=== PATIENT | male | born 1985 | race African-American/Black ===

== ENCOUNTER 2016-02-16 07:09 | Emergency (ER) | payer SELFPAY ==
[~2016-02-16] VITALS: Ht 180.3 cm; Wt 67.0 kg
[~2016-02-16 07:09] MED LIST: ARIP1TAB46 PO; CLON.2 PO; DILA4TAB10 PO; DIVA250ER PO; ENOX80P SQ; FERR324T4 PO; FOLI5CAP PO; MS C30TA5 PO; WARF10 PO
[2016-02-16 07:20] VITALS: BP 112/78; PULSE 67; RESP 14; TEMP 97.8; O2SAT 97
[2016-02-16] MEDS ORDERED: DIAZ5 PO (07:44)
[2016-02-16] MEDS ORDERED: FOLI5CAP PO (07:44)
[2016-02-16] MEDS ORDERED: HYDR8TAB PO (07:44)
[2016-02-16] MEDS ORDERED: DEPA500T3 PO (07:44)
[2016-02-16] MEDS ORDERED: XARE15TA PO (07:44)
[2016-02-16] MEDS ORDERED: FERR1TAB36 PO (07:44)
[2016-02-16] MEDS ORDERED: ENOX80P SQ (07:44)
[2016-02-16 07:45] VITALS: O2SAT 98
[2016-02-16] MEDS ORDERED: IBUPROFEN 800 MG TAB PO ONE (07:45)
[2016-02-16] MEDS ORDERED: SODIUM CHLORIDE 0.9% FLUSH 5 ML FLUSH IVF PRN (07:45)
--- NOTE | 2016-02-16 07:50 | PD ---
HPI Chief Complaint: Sickle Cell Time Seen by Provider: 07:24 Travel History International Travel<30 days: No Contact w/Intl Traveler<30days: No Traveled to known affect area: No History of Present Illness HPI Patient is a 30-year-old male with reported history of sickle cell who presents emergency department with complaint of body pain. Patient states that he is on the [facility] visiting family for the holidays. He typically lives in [place]. He was at [facility] in [place] yesterday where they did blood work, patient really does not know these results. Patient states that they gave him a [employer] bus ticket to come to [facility]. Yesterday evening he was seen at [facility] for complaint of all of her body pain, referenced by him as his sickle cell pain. Patient states "they gave me shots of Dilaudid and Valium" and sent me home. Patient apparently has not been welcomed by his family here and has been homeless. Patient states "it's cold out to my sickle cell is flaring". Patient complains of pain throughout the body, not one-sided more localized than the other. No fevers or chills. Patient requests Dilaudid and muscle relaxers by name and offers a laundry list of drug allergies. He is seen by an silvering applicator in [place], whom he is on a pain contract with. Patient states that he gets Dilaudid 8 mg every 4 hours, and Valium but has been out of this for the last several days since being here in the [facility] to visit family. PFSH Past Medical History Bipolar Disorder: Yes Cardiac Catheterization: Yes Cardiovascular Problems: Yes Coronary Artery Disease: Yes Diminished Hearing: No Hypertension: Yes Inguinal Hernia: Yes Respiratory: Yes (PULMONARY EMBOLISM) Immunizations Current: Yes Pancreatitis: Yes Sickle Cell Disease: Yes Past Surgical History Abdominal Surgery: Yes (INGUINAL HERNIA) Cholecystectomy: Yes Social History Alcohol Use: No Tobacco Use: Yes Substance Use: No (DENIES) Allergies-Medications (Allergen,Severity, Reaction): Coded Allergies: Compazine (Verified Allergy, Severe, 02/16/16) Erythromycin (Verified Allergy, Severe, 02/16/16) Naprosyn (Verified Allergy, Severe, Shortness of Breath, 02/16/16) Plavix (Verified Allergy, Severe, Chest Pain, 02/16/16) Toradol (Verified Allergy, Severe, 02/16/16) Zofran (Verified Allergy, Severe, Hives, 02/16/16) Acetaminophen (Verified Allergy, Unknown, 02/16/16) Amoxicillin (Unverified Allergy, Unknown, HIVES, SOB, 02/16/16) Aspirin (Verified Allergy, Unknown, 02/16/16) Ativan (Verified Allergy, Unknown, 02/16/16) Celexa (Verified Allergy, Unknown, 02/16/16) Fluphenazine (Verified Allergy, Unknown, 02/16/16) Percocet (Verified Allergy, Unknown, 02/16/16) Prolixin (Verified Allergy, Unknown, 02/16/16) Reglan (Verified Allergy, Unknown, 02/16/16) Tramadol (Verified Allergy, Unknown, 02/16/16) Vancomycin (Unverified Allergy, Unknown, SOB, 02/16/16) Ziprasidone (Verified Allergy, Unknown, 02/16/16) Reported Meds & Prescriptions Reported Meds & Active Scripts Active Reported Lovenox Inj (Enoxaparin Sodium) 80 mg/0.8 ML Syr 80 Mg SQ DAILY Xarelto (Rivaroxaban) 15 Mg Tab 15 Mg PO DAILY Folic Acid 5 Mg Cap 5 Mg PO DAILY Depakote ER (Divalproex Sodium) 500 Mg Santiago 1,000 Mg PO TID Iron (Ferrous Sulfate) 325 Mg Tab 325 Mg PO BIDPC Take after a meal. Valium (Diazepam) 5 Mg Tab 5 Mg PO BID Hydromorphone (Hydromorphone HCl) 8 Mg Tab 8 Mg PO Q8HR PRN Review of Systems ROS Limitations: Poor Historian Except as stated in HPI: all other systems reviewed are Neg Physical Exam Exam Limitations: Poor Historian Narrative GENERAL: Thin male in no acute distress, disheveled SKIN: Warm and dry. HEAD: Normocephalic. EYES: Pupils equal and round. No scleral icterus. No injection or drainage. ENT: No nasal bleeding or discharge. Mucous membranes pink and moist. NECK: Supple CARDIOVASCULAR: Regular rate and rhythm. No murmur appreciated. RESPIRATORY: No accessory muscle use. Clear to auscultation. Breath sounds equal bilaterally. GASTROINTESTINAL: Abdomen soft, non-tender, nondistended. MUSCULOSKELETAL: Moves all extremities normally, normal gait NEUROLOGICAL: Awake and alert. Grossly nonfocal neuro exam. Normal speech. PSYCHIATRIC: Poor insight and judgment Data Data Last Documented VS Vital Signs Date Time Temp Pulse Resp B/P Pulse Ox O2 Delivery O2 Flow Rate FiO2 02/16/16 07:45 98 Room Air 02/16/16 07:20 97.8 67 14 112/78 Orders Basic Metabolic Panel (Bmp) (02/16/16 07:34) Complete Blood Count With Diff (02/16/16 07:34) Iv Access Insert/Monitor (02/16/16 07:34) Oximetry (02/16/16 07:34) Sodium Chloride 0.9% Flush (Ns Flush) (02/16/16 07:45) Ibuprofen (Motrin) (02/16/16 07:45) MDM Medical Decision Making Medical Screen Exam Complete: Yes Emergency Medical Condition: Yes Medical Record Reviewed: Yes Differential Diagnosis 30-year-old male with reported history of sickle cell here with complaint of generalized body pain for several days duration typical of his history of sickle cell. Patient offers every red flag in the book for drug- seeking behavior. I told him that I'm happy to check blood work to evaluate his hemoglobin and look for signs of anemia, splenic sequestration, etc. He does not have any symptoms of acute chest syndrome. However, we will not be treating his pain with narcotics or benzodiazepines while in the emergency department. Patient was offered nonnarcotic options, but lists drug allergies to everything nonnarcotic, benzodiazepine. Given the above, patient states "I might as well just go home and be seen by my doctor". Patient was encouraged to do this as he has a pain contract with said physician. He then bargained for a meal tray, stating he was homeless. Patient was offered information for local homeless shelters. Narrative Course See above Diagnosis Primary Impression: Drug-seeking behavior Additional Impressions: Malingering Homelessness Chronic pain Qualified Code: G89.4 - Chronic pain syndrome [facility] Additional Instructions: Follow-up with your primary care physician in [place]. The emergency department is not an appropriate location to manage your chronic pain. We will not be giving you narcotic stitch manage her chronic pain in the emergency department. This needs to be filled with your primary care physician in [place], with whom you have a pain contract. Med/Other Pt SpecificInfo: No Change to Meds Disposition: 01 DISCHARGE HOME Condition: Stable Roseanna Ponce MD Feb 16, 2016 07:50
== END 2016-02-16 08:30 | disposition home or self-care (01) ==
LOC: NEPC 07:09
DX: G89.29 Other chronic pain (principal); D57.1 Sickle-cell disease without crisis; Z72.89 Other problems related to lifestyle; Z76.5 Malingerer [conscious simulation]; Z59.0 Homelessness
CPT/HCPCS: 99284

== ENCOUNTER 2016-09-25 10:14 | Emergency (ER) | payer SELFPAY ==
[~2016-09-25] VITALS: Ht 180.3 cm; Wt 73.5 kg
[~2016-09-25 10:14] MED LIST changes: -ARIP1TAB46 PO; -CLON.2 PO; +CLON0.2T PO; +DIAZ5 PO; -DILA4TAB10 PO; -DIVA250ER PO; -ENOX80P SQ; +FERR200T PO; -FERR324T4 PO; +FOLI1TAB6; -FOLI5CAP PO; +HYDR8TAB PO; -MS C30TA5 PO; +SIMV20TA PO; -WARF10 PO; +XARE15TA PO
[2016-09-25 10:19] VITALS: BP 130/76; PULSE 61; RESP 18; TEMP 97.8; O2SAT 95
[2016-09-25] MEDS ORDERED: SODIUM CHLOR 0.9% 1000 ML INJ 1,000 ML IV ONE (10:40)
[2016-09-25] MEDS ORDERED: SODIUM CHLORIDE 0.9% FLUSH 10 ML FLUSH IVF PRN (10:45)
[2016-09-25] MEDS ORDERED: MORPHINE SULFATE 4 MG/ML INJ IV PUSH ONE (11:15)
--- NOTE | 2016-09-25 11:37 | PD ---
HPI Chief Complaint: Sickle Cell Time Seen by Provider: 10:38 Travel History International Travel<30 days: No Contact w/Intl Traveler<30days: No Traveled to known affect area: No History of Present Illness HPI The patient is a 31-year-old [place] male who presents emergency department for multiple complaints. 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 The patient states he recently moved from [place], is making his way to [place], [place], is followed by an oncologist in [place], [place]. 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 He states he also has a history of pericarditis and was referred to a aoc operations intelligence chief as well as a steam table worker in [place]. The patient then requested something to eat and drink. PFSH Past Medical History Hx Anticoagulant Therapy: Yes Anemia: Yes Asthma: Yes Bipolar Disorder: Yes Cardiac Catheterization: Yes Cardiovascular Problems: Yes High Cholesterol: Yes Chemotherapy: Yes Chest Pain: Yes Cirrhosis: Yes Coronary Artery Disease: Yes Diminished Hearing: No Hepatitis: Yes Hypertension: Yes Inguinal Hernia: Yes Respiratory: Yes Immunizations Current: Yes Pancreatitis: Yes Renal Failure: Yes Sickle Cell Disease: Yes Thyroid Disease: Yes Past Surgical History Abdominal Surgery: Yes (INGUINAL HERNIA) Cholecystectomy: Yes Social History Alcohol Use: No Tobacco Use: Yes Substance Use: No (marijuana) Allergies-Medications (Allergen,Severity, Reaction): Coded Allergies: clopidogrel (Unverified Allergy, Severe, Chest Pain, 09/22/16) erythromycin base (Unverified Allergy, Severe, 09/22/16) ketorolac (Unverified Allergy, Severe, 09/22/16) ondansetron (Unverified Allergy, Severe, Hives, 09/22/16) prochlorperazine (Unverified Allergy, Severe, 09/22/16) Sulfa (Sulfonamide Antibiotics) (Unverified Allergy, Unknown, 09/22/16) acetaminophen (Unverified Allergy, Unknown, 09/22/16) amoxicillin (Unverified Allergy, Unknown, HIVES, SOB, 09/22/16) aspirin (Unverified Allergy, Unknown, 09/22/16) citalopram (Unverified Allergy, Unknown, 09/22/16) diclofenac (Unverified Allergy, Unknown, 09/22/16) etodolac (Unverified Allergy, Unknown, 09/22/16) fluphenazine (Unverified Allergy, Unknown, 09/22/16) flurbiprofen (Unverified Allergy, Unknown, 09/22/16) haloperidol (Unverified Allergy, Unknown, 09/22/16) ibuprofen (Unverified Allergy, Unknown, 09/22/16) indomethacin (Unverified Allergy, Unknown, 09/22/16) ketoprofen (Unverified Allergy, Unknown, 09/22/16) lorazepam (Unverified Allergy, Unknown, 09/22/16) metoclopramide (Unverified Allergy, Unknown, 09/22/16) naproxen (Unverified Allergy, Unknown, 09/22/16) oxaprozin (Unverified Allergy, Unknown, 09/22/16) oxycodone (Unverified Allergy, Unknown, 09/22/16) sertraline (Unverified Allergy, Unknown, 09/22/16) tramadol (Unverified Allergy, Unknown, 09/22/16) vancomycin (Unverified Allergy, Unknown, SOB, 09/22/16) ziprasidone (Unverified Allergy, Unknown, 09/22/16) Reported Meds & Prescriptions Reported Meds & Active Scripts Active Reported Clonidine (Clonidine HCl) 0.2 Mg Tab 0.2 Mg PO BID Simvastatin 20 Mg Tab 20 Mg PO HS Folic Acid 1 Mg Tablet Feosol (Ferrous Sulfate) 200 Mg Tab 325 Mg PO BIDPC Xarelto (Rivaroxaban) 15 Mg Tab 15 Mg PO DAILY Valium (Diazepam) 5 Mg Tab 5 Mg PO BID Hydromorphone (Hydromorphone HCl) 8 Mg Tab 8 Mg PO Q8HR PRN Review of Systems Except as stated in HPI: all other systems reviewed are Neg Cardiovascular: Positive: Chest Pain or Discomfort Respiratory: Positive: Shortness of Breath Gastrointestinal: Positive: Abdominal Pain Musculoskeletal: Positive: Myalgias Hematologic/Lymphatic: Positive: Other (states he has a history of sickle cell SC and CLL) Physical Exam Narrative GENERAL: Awake, alert, nontoxic-appearing 31-year-old male who appears his stated age and is in no acute respiratory distress. SKIN: Focused skin assessment warm/dry. HEAD: Atraumatic. Normocephalic. EYES: Pupils equal and round. No scleral icterus. No injection or drainage. ENT: No nasal bleeding or discharge. Mucous membranes pink and moist. NECK: Trachea midline. No JVD. CARDIOVASCULAR: Regular rate and rhythm. No murmur appreciated. RESPIRATORY: No accessory muscle use. Clear to auscultation. Breath sounds equal bilaterally. GASTROINTESTINAL: Abdomen soft, non-tender, nondistended. No rebound tenderness. MUSCULOSKELETAL: No obvious deformities. No clubbing. No cyanosis. No edema. NEUROLOGICAL: Awake and alert. No obvious cranial nerve deficits. Motor grossly within normal limits. Normal speech. Nonfocal. PSYCHIATRIC: Appropriate mood and affect; insight and judgment normal. Data Data Last Documented VS Vital Signs Date Time Temp Pulse Resp B/P Pulse Ox O2 Delivery O2 Flow Rate FiO2 09/25/16 10:44 64 20 98 Nasal Cannula 2 09/25/16 10:19 97.8 130/76 Orders Complete Blood Count With Diff (09/25/16 10:40) Comprehensive Metabolic Panel (09/25/16 10:40) Retic Count (09/25/16 10:40) Ecg Monitoring (09/25/16 10:40) Iv Access Insert/Monitor (09/25/16 10:40) Oximetry (09/25/16 10:40) Sodium Chloride 0.9% Flush (Ns Flush) (09/25/16 10:45) Sodium Chlor 0.9% 1000 Ml Inj (Ns 1000 M (09/25/16 10:40) Ldh Serum (09/25/16 10:40) Sickle Cell Screen (09/25/16 10:40) Electrocardiogram (09/25/16 ) Morphine Inj (Morphine Inj) (09/25/16 11:15) MDM Medical Decision Making Medical Screen Exam Complete: Yes Emergency Medical Condition: Yes Medical Record Reviewed: Yes Differential Diagnosis Differential diagnosis includes CLL, sickle cell SC, sickle cell SS, anemia, dehydration, electrolyte abnormality, pericarditis, acute coronary syndrome, malingering. Narrative Course After physical examination labs, EKG, and IV fluids were ordered. However, the patient refused all blood work and EKG. The patient requested something to eat and some Gatorade and then stated he wanted to go and make his way to [place]. The patient signed out against medical records assistant. Diagnosis Primary Impression: Chronic pain Qualified Code: G89.4 - Chronic pain syndrome Additional Impressions: Malingering Left against medical advice Patient Instructions: Moderate Sedation in Children (ED) Additional Instructions: Follow-up with your primary physician. Return if symptoms worsen or progress. Disposition: 07 AGAINST MEDICAL ADVICE Condition: Stable Stephen Gaytan MD Sep 25, 2016 11:37
== END 2016-09-25 12:09 | disposition left against medical advice (07) ==
LOC: NEPE 10:14
DX: G89.4 Chronic pain syndrome (principal); I10 Essential (primary) hypertension; E78.00 Pure hypercholesterolemia, unspecified; Z76.5 Malingerer [conscious simulation]; J45.909 Unspecified asthma, uncomplicated; D57.20 Sickle-cell/Hb-C disease without crisis; Z85.6 Personal history of leukemia
CPT/HCPCS: 99281

== ENCOUNTER 2016-10-01 09:05 | Emergency (ER) | payer SELFPAY ==
[~2016-10-01] VITALS: Ht 180.3 cm; Wt 66.0 kg
[2016-10-01 09:19] VITALS: BP 111/75; PULSE 70; RESP 18; TEMP 97.7; O2SAT 98
--- NOTE | 2016-10-01 09:24 | PD ---
HPI Chief Complaint: Facial Pain or Swelling Time Seen by Provider: 09:08 Travel History International Travel<30 days: No Contact w/Intl Traveler<30days: No Traveled to known affect area: No History of Present Illness HPI This patient complains of pain in his last left lower jaw molar. He's had dental pain for a week now. He has not seen a dentist. He reports a history of sickle cell disease. Patient is a local homeless person with history of malingering and drug-seeking behavior. He called 911 from a [email or web address] station to bring him here. This was his second 911 call of the day. He complains of generalized weakness. No alleviating factors. Symptoms severity is moderate. PFSH Past Medical History Hx Anticoagulant Therapy: Yes Anemia: Yes Asthma: Yes Bipolar Disorder: Yes Cardiac Catheterization: Yes Cardiovascular Problems: Yes High Cholesterol: Yes Chemotherapy: Yes Chest Pain: Yes Cirrhosis: Yes Coronary Artery Disease: Yes Diminished Hearing: No Hepatitis: Yes Hypertension: Yes Inguinal Hernia: Yes Respiratory: Yes Immunizations Current: Yes Pancreatitis: Yes Renal Failure: Yes Sickle Cell Disease: Yes Thyroid Disease: Yes Past Surgical History Abdominal Surgery: Yes (INGUINAL HERNIA) Cholecystectomy: Yes Social History Alcohol Use: No Tobacco Use: Yes Substance Use: No (marijuana) Allergies-Medications (Allergen,Severity, Reaction): Coded Allergies: clopidogrel (Unverified Allergy, Severe, Chest Pain, 10/01/16) erythromycin base (Unverified Allergy, Severe, 10/01/16) ketorolac (Unverified Allergy, Severe, 10/01/16) ondansetron (Unverified Allergy, Severe, Hives, 10/01/16) prochlorperazine (Unverified Allergy, Severe, 10/01/16) Sulfa (Sulfonamide Antibiotics) (Unverified Allergy, Unknown, 10/01/16) acetaminophen (Unverified Allergy, Unknown, 10/01/16) amoxicillin (Unverified Allergy, Unknown, HIVES, SOB, 10/01/16) aspirin (Unverified Allergy, Unknown, 10/01/16) citalopram (Unverified Allergy, Unknown, 10/01/16) diclofenac (Unverified Allergy, Unknown, 10/01/16) etodolac (Unverified Allergy, Unknown, 10/01/16) fluphenazine (Unverified Allergy, Unknown, 10/01/16) flurbiprofen (Unverified Allergy, Unknown, 10/01/16) haloperidol (Unverified Allergy, Unknown, 10/01/16) ibuprofen (Unverified Allergy, Unknown, 10/01/16) indomethacin (Unverified Allergy, Unknown, 10/01/16) ketoprofen (Unverified Allergy, Unknown, 10/01/16) lorazepam (Unverified Allergy, Unknown, 10/01/16) metoclopramide (Unverified Allergy, Unknown, 10/01/16) naproxen (Unverified Allergy, Unknown, 10/01/16) oxaprozin (Unverified Allergy, Unknown, 10/01/16) oxycodone (Unverified Allergy, Unknown, 10/01/16) sertraline (Unverified Allergy, Unknown, 10/01/16) tramadol (Unverified Allergy, Unknown, 10/01/16) vancomycin (Unverified Allergy, Unknown, SOB, 10/01/16) ziprasidone (Unverified Allergy, Unknown, 10/01/16) Reported Meds & Prescriptions Reported Meds & Active Scripts Active Reported Clonidine (Clonidine HCl) 0.2 Mg Tab 0.2 Mg PO BID Simvastatin 20 Mg Tab 20 Mg PO HS Folic Acid 1 Mg Tablet Feosol (Ferrous Sulfate) 200 Mg Tab 325 Mg PO BIDPC Xarelto (Rivaroxaban) 15 Mg Tab 15 Mg PO BID Valium (Diazepam) 5 Mg Tab 5 Mg PO BID Hydromorphone (Hydromorphone HCl) 8 Mg Tab 8 Mg PO Q8HR PRN Review of Systems General / Constitutional: No: Fever Eyes: No: Visual changes HENT: Positive: Dental Difficulties, No: Headaches Cardiovascular: No: Chest Pain or Discomfort Respiratory: No: Shortness of Breath Gastrointestinal: No: Abdominal Pain Genitourinary: No: Dysuria Musculoskeletal: Positive: Weakness, No: Pain Skin: No Rash Neurologic: Positive: Weakness Psychiatric: No: Depression Endocrine: No: Polydipsia Hematologic/Lymphatic: No: Easy Bruising Physical Exam Narrative GENERAL: Thin well-developed patient in no apparent distress. SKIN: Focused skin assessment reveals no rash and nodules. Skin is Warm and dry. HEAD: Atraumatic. Normocephalic. EYES: Pupils equal and round. No scleral icterus. No injection or drainage. ENT: No nasal bleeding or discharge. Mucous membranes pink and moist. Oral cavity examination shows normal pink gingiva. Does appear like the left last lower jaw molar has a visible cavity NECK: Trachea midline. No JVD. CARDIOVASCULAR: Regular rate and rhythm. No murmur appreciated. RESPIRATORY: No accessory muscle use. Clear to auscultation. Breath sounds equal bilaterally. GASTROINTESTINAL: Abdomen soft, non-tender, nondistended. Hepatic and splenic margins not palpable. MUSCULOSKELETAL: No obvious deformities. No clubbing. No cyanosis. No edema. NEUROLOGICAL: Awake and alert. No obvious cranial nerve deficits. Motor grossly within normal limits. Normal speech. PSYCHIATRIC: Appropriate mood and affect; insight and judgment seems poor. Data Data Last Documented VS Vital Signs Date Time Temp Pulse Resp B/P (MAP) Pulse Ox O2 Delivery O2 Flow Rate FiO2 10/01/16 09:19 97.7 70 18 111/75 (87) 98 Orders Orders Complete Blood Count With Diff (10/01/16 09:18) [facility] Medical Decision Making Medical Screen Exam Complete: Yes Emergency Medical Condition: Yes Medical Record Reviewed: Yes Differential Diagnosis Malingering, dental cavity, sickle cell pain, sickle cell crisis Narrative Course I have reviewed the patient's electronic medical record. Reviewed several visits. He was here earlier this month. He refused blood draw last few times. His last hemoglobin here was 12.4 in 2014 I ordered a CBC but the patient refused to let us draw blood which is typical for him and not surprising since I reviewed his recent visits. He typically refuses blood draw. He demands to be fed and wants pain medicine. He is going to be discharged and should follow-up with his physician. Diagnosis Primary Impression: Malingering Additional Impression: Left against medical advice Additional Instructions: The patient was advised to follow up with their physician and return if they worsen. Med/Other Pt SpecificInfo: Other Disposition: 07 AGAINST MEDICAL ADVICE Gabriele Frey MD Oct 01, 2016 09:24
== END 2016-10-01 10:36 | disposition left against medical advice (07) ==
LOC: PHED 09:05
DX: Z76.5 Malingerer [conscious simulation] (principal); I10 Essential (primary) hypertension; I25.10 Atherosclerotic heart disease of native coronary artery without angina pectoris; J45.909 Unspecified asthma, uncomplicated; K74.60 Unspecified cirrhosis of liver; Z59.0 Homelessness; Z88.0 Allergy status to penicillin
CPT/HCPCS: 99281

== ENCOUNTER 2016-10-05 21:26 | Emergency (ER) | payer SELFPAY ==
[2016-10-05 21:32] VITALS: BP 110/66; PULSE 71; RESP 18; TEMP 98.2; O2SAT 100
== END 2016-10-05 22:05 | disposition left against medical advice (07) ==
LOC: NED 21:26
DX: R52 Pain, unspecified (principal); Z53.21 Procedure and treatment not carried out due to patient leaving prior to being seen by health care provider
CPT/HCPCS: 99281

== ENCOUNTER 2016-10-13 05:41 | Emergency (ER) | payer SELFPAY ==
[~2016-10-13] VITALS: Ht 180.3 cm; Wt 64.5 kg
[2016-10-13 05:44] VITALS: BP 108/63; PULSE 72; RESP 16; TEMP 98; O2SAT 100
[2016-10-13 06:11] VITALS: BP 111/58; PULSE 78; RESP 12; TEMP 97.9; O2SAT 100
--- NOTE | 2016-10-13 06:42 | PD ---
HPI Chief Complaint: Musculoskeletal Complaint Time Seen by Provider: 06:24 Travel History International Travel<30 days: No Contact w/Intl Traveler<30days: No Traveled to known affect area: No History of Present Illness HPI The patient is a 31 year old male who presents to the [facility] emergency department with a history of lower extremity edema that he reports he was told may need to be drained. He reports that he went to another hospital and was told that it needed to be drained. He reports that he also called his primary care physician and was told that he would need x-rays of his legs. The patient on my arrival to the room is sleeping soundly on his side. The patient is fully clothes. The patient refused to get into a gown when asked by the nurse that initially checked him in. When I awaken the patient, the patient again refused to get undressed so that I could examine him, and refused to roll onto his back for examination. The patient became angry, belligerent, stating that he would leave and go to [facility]. [facility] Past Medical History Narrative Medical The patient's past medical history is obtained through the electronic medical record and consists of sickle cell, reported history of blood clots, history of bipolar disorder, hypertension, reported history of CLL, history of chronic pain. Hx Anticoagulant Therapy: Yes (Xarelto) Anemia: Yes Asthma: Yes Autoimmune Disease: Yes (Leukemia) Bipolar Disorder: Yes Cardiac Catheterization: Yes Cardiovascular Problems: Yes (CAD, Anemia) High Cholesterol: Yes Chemotherapy: Yes Chest Pain: Yes Cirrhosis: Yes Coronary Artery Disease: Yes Diminished Hearing: No Hepatitis: Yes Hypertension: Yes Inguinal Hernia: Yes Respiratory: Yes Immunizations Current: Yes Pancreatitis: Yes Renal Failure: Yes Sickle Cell Disease: Yes Thyroid Disease: Yes Tetanus Vaccination: < 5 Years Influenza Vaccination: Yes Past Surgical History Narrative Surgical The patient's past surgical history is significant for a cholecystectomy, inguinal hernia repair. Abdominal Surgery: Yes (INGUINAL HERNIA) Cholecystectomy: Yes Social History Alcohol Use: No Tobacco Use: Yes (1 cig daily) Substance Use: Yes (marijuana) Allergies-Medications (Allergen,Severity, Reaction): Coded Allergies: clopidogrel (Unverified Allergy, Severe, Chest Pain, 10/01/16) erythromycin base (Unverified Allergy, Severe, 10/01/16) ketorolac (Unverified Allergy, Severe, 10/01/16) ondansetron (Unverified Allergy, Severe, Hives, 10/01/16) prochlorperazine (Unverified Allergy, Severe, 10/01/16) Sulfa (Sulfonamide Antibiotics) (Unverified Allergy, Unknown, 10/01/16) acetaminophen (Unverified Allergy, Unknown, 10/01/16) amoxicillin (Unverified Allergy, Unknown, HIVES, SOB, 10/01/16) aspirin (Unverified Allergy, Unknown, 10/01/16) citalopram (Unverified Allergy, Unknown, 10/01/16) diclofenac (Unverified Allergy, Unknown, 10/01/16) etodolac (Unverified Allergy, Unknown, 10/01/16) fluphenazine (Unverified Allergy, Unknown, 10/01/16) flurbiprofen (Unverified Allergy, Unknown, 10/01/16) haloperidol (Unverified Allergy, Unknown, 10/01/16) ibuprofen (Unverified Allergy, Unknown, 10/01/16) indomethacin (Unverified Allergy, Unknown, 10/01/16) ketoprofen (Unverified Allergy, Unknown, 10/01/16) lorazepam (Unverified Allergy, Unknown, 10/01/16) metoclopramide (Unverified Allergy, Unknown, 10/01/16) naproxen (Unverified Allergy, Unknown, 10/01/16) oxaprozin (Unverified Allergy, Unknown, 10/01/16) oxycodone (Unverified Allergy, Unknown, 10/01/16) sertraline (Unverified Allergy, Unknown, 10/01/16) tramadol (Unverified Allergy, Unknown, 10/01/16) vancomycin (Unverified Allergy, Unknown, SOB, 10/01/16) ziprasidone (Unverified Allergy, Unknown, 10/01/16) Reported Meds & Prescriptions Reported Meds & Active Scripts Active Reported Clonidine (Clonidine HCl) 0.2 Mg Tab 0.2 Mg PO BID Simvastatin 20 Mg Tab 20 Mg PO HS Folic Acid 1 Mg Tablet Feosol (Ferrous Sulfate) 200 Mg Tab 325 Mg PO BIDPC Xarelto (Rivaroxaban) 15 Mg Tab 15 Mg PO BID Valium (Diazepam) 5 Mg Tab 5 Mg PO BID Hydromorphone (Hydromorphone HCl) 8 Mg Tab 8 Mg PO Q8HR PRN Review of Systems ROS Limitations: Refused Musculoskeletal: Positive: Myalgias, Arthralgias, Limited ROM, Edema Physical Exam Exam Limitations: Refused Narrative The Patient refuses to be examined Data Data Last Documented VS Vital Signs Date Time Temp Pulse Resp B/P (MAP) Pulse Ox O2 Delivery O2 Flow Rate FiO2 10/13/16 06:11 97.9 78 12 111/58 (75) 100 10/13/16 05:44 Room Air MDM Medical Decision Making Medical Screen Exam Complete: No Emergency Medical Condition: No Differential Diagnosis Arthralgias, versus sickle cell exacerbation, versus congestive heart failure, versus septic arthritis Narrative Course During the course of the patients emergency department visit, the patients history, examination, and differential diagnosis were reviewed with the patient , however the patient continued to refuse to get into a gown and allow additional evaluation by physical examination. He refused IV access and blood work. The patient elected to leave AGAINST MEDICAL ADVICE prior to the completion of his workup. AMA: The risks of leaving against medical advice without further evaluation treatment were discussed with the patient. These risks include cardiac dysfunction, cardiac dysrhythmia, possible heart attack, possible stroke or . The patient indicated understanding of these risks and appeared to have the capacity to make this decision. Diagnosis Primary Impression: Lower extremity pain Qualified Codes: M79.604 - Pain in right leg; M79.605 - Pain in left leg Referrals: Primary Care Physician 1 day Patient Instructions: General Instructions, Leg Pain (ED) Disposition: 07 AGAINST MEDICAL ADVICE Condition: Stable Chel Pedraza MD Oct 13, 2016 06:42
== END 2016-10-13 06:49 | disposition left against medical advice (07) ==
LOC: NEPC 05:41
DX: M79.604 Pain in right leg (principal); M79.605 Pain in left leg; I12.9 Hypertensive chronic kidney disease with stage 1 through stage 4 chronic kidney disease, or unspecified chronic kidney disease; N18.9 Chronic kidney disease, unspecified; D57.1 Sickle-cell disease without crisis; K74.60 Unspecified cirrhosis of liver; I25.10 Atherosclerotic heart disease of native coronary artery without angina pectoris; K85.90 Acute pancreatitis without necrosis or infection, unspecified; F31.9 Bipolar disorder, unspecified
CPT/HCPCS: 99281

== ENCOUNTER 2016-10-16 03:01 | Emergency (ER) | payer SELFPAY ==
[2016-10-16 03:05] VITALS: BP 122/61; PULSE 94; RESP 16; TEMP 98.5; O2SAT 98
--- NOTE | 2016-10-16 03:35 | PD ---
HPI Chief Complaint: Injury Time Seen by Provider: 03:27 Travel History International Travel<30 days: No Contact w/Intl Traveler<30days: No Traveled to known affect area: No History of Present Illness HPI 31-year-old male presents to emergency department requesting pain medication for bilateral foot pain. Patient states that he was here earlier this week for broken bones in his feet. He states they wanted to do lab work and he did not feel like he needed this for broken bones in his feet. He tells me he called his doctor who told him to go to [facility]. He tells me they told him there his feet were broken but to "try it out" without anything and if matters got worse he could come to the emergency department for a splint and crutches. Patient does not recall how he broke his feet but tells me the dorsal aspect of his left foot is broken as well as the right great toe. He is also requesting something to eat. History Past Medical Histgory Hx Chemotherapy: Yes Social History Alcohol Use: No Tobacco Use: Yes (1 cig daily) Allergies-Medications (Allergen,Severity, Reaction): Coded Allergies: clopidogrel (Unverified Allergy, Severe, Chest Pain, 10/16/16) erythromycin base (Unverified Allergy, Severe, 10/16/16) ketorolac (Unverified Allergy, Severe, 10/16/16) ondansetron (Unverified Allergy, Severe, Hives, 10/16/16) prochlorperazine (Unverified Allergy, Severe, 10/16/16) Sulfa (Sulfonamide Antibiotics) (Unverified Allergy, Unknown, 10/16/16) acetaminophen (Unverified Allergy, Unknown, 10/16/16) amoxicillin (Unverified Allergy, Unknown, HIVES, SOB, 10/16/16) aspirin (Unverified Allergy, Unknown, 10/16/16) citalopram (Unverified Allergy, Unknown, 10/16/16) diclofenac (Unverified Allergy, Unknown, 10/16/16) etodolac (Unverified Allergy, Unknown, 10/16/16) fluphenazine (Unverified Allergy, Unknown, 10/16/16) flurbiprofen (Unverified Allergy, Unknown, 10/16/16) haloperidol (Unverified Allergy, Unknown, 10/16/16) ibuprofen (Unverified Allergy, Unknown, 10/16/16) indomethacin (Unverified Allergy, Unknown, 10/16/16) ketoprofen (Unverified Allergy, Unknown, 10/16/16) lorazepam (Unverified Allergy, Unknown, 10/16/16) metoclopramide (Unverified Allergy, Unknown, 10/16/16) naproxen (Unverified Allergy, Unknown, 10/16/16) oxaprozin (Unverified Allergy, Unknown, 10/16/16) oxycodone (Unverified Allergy, Unknown, 10/16/16) sertraline (Unverified Allergy, Unknown, 10/16/16) tramadol (Unverified Allergy, Unknown, 10/16/16) vancomycin (Unverified Allergy, Unknown, SOB, 10/16/16) ziprasidone (Unverified Allergy, Unknown, 10/16/16) Reported Meds & Prescriptions Reported Meds & Active Scripts Active Reported Clonidine (Clonidine HCl) 0.2 Mg Tab 0.2 Mg PO BID Simvastatin 20 Mg Tab 20 Mg PO HS Folic Acid 1 Mg Tablet Feosol (Ferrous Sulfate) 200 Mg Tab 325 Mg PO BIDPC Xarelto (Rivaroxaban) 15 Mg Tab 15 Mg PO BID Valium (Diazepam) 5 Mg Tab 5 Mg PO BID Hydromorphone (Hydromorphone HCl) 8 Mg Tab 8 Mg PO Q8HR PRN Review of Systems Except as stated in HPI: all other systems reviewed are Neg Physical Exam Narrative GENERAL: Unkempt, seemingly agitated male patient, in no acute distress.. Patient is ambulatory without difficulty. SKIN: Focused skin assessment warm/dry. Scaling of the bilateral plantar surface of the feet. HEAD: Normocephalic. EYES: No scleral icterus. No injection or drainage. NECK: Supple, trachea midline. No JVD or lymphadenopathy. CARDIOVASCULAR: Regular rate and rhythm without murmurs, gallops, or rubs. RESPIRATORY: Breath sounds equal bilaterally. No accessory muscle use. MUSCULOSKELETAL: No cyanosis, or edema. No deformity. BACK: Nontender without obvious deformity. No CVA tenderness. Data Data Last Documented VS Vital Signs Date Time Temp Pulse Resp B/P (MAP) Pulse Ox O2 Delivery O2 Flow Rate FiO2 10/16/16 03:05 98.5 94 16 122/61 (81) 98 Room Air [facility] Medical Screen Exam Complete: Yes Emergency Medical Condition: No Differential Diagnosis B foot pain; narcotic seeking; malingering Narrative Course 31-year-old male presents emergency department requesting pain medication for bilateral foot pain. Patient is also requesting something to eat. Patient refused complete workup on his earlier visit this month because he feels he knows that his feet are broken despite no injury. I explained the patient that he has had a workup at [facility] and he has instructions on how to care for his feet. There is no mention of fracture in the discharge paperwork provided by [facility]. At this time there are no urgent or emergent needs for medical intervention identified. A medical screening exam was performed: At the time of evaluation the presenting medical condition was determined not to be of an emergent nature. The patient was given the option of receiving additional care, but declined. Patient was given options for additional community resources from which to obtain care. The Patient Has Been advised to seek medical attention for their presenting complaint. The patient has been advised to return to the ER at any time if an emergent condition develops. Primary Impression: Encounter for medical screening examination Condition: Elke Nelson Oct 16, 2016 03:35
== END 2016-10-16 11:37 | disposition left against medical advice (07) ==
LOC: NEPD 03:01
DX: M79.671 Pain in right foot (principal); M79.672 Pain in left foot
CPT/HCPCS: 99281

== ENCOUNTER 2016-11-17 21:59 | Emergency (ER) | payer SELFPAY ==
[~2016-11-17] VITALS: Ht 172.7 cm; Wt 75.0 kg
[2016-11-17 22:09] VITALS: BP 134/76; PULSE 78; RESP 16; TEMP 97.9; O2SAT 98
--- NOTE | 2016-11-17 22:21 | PD ---
Physical Exam Date Seen by Provider: Nov 17, 2016 Time Seen by Provider: 22:18 Narrative 31 yo male here for evaluation of chest pain. History per patient of sickle cell and leukemia. Per ambulance report released from [facility] today. [facility] was called and they took him initially to [facility] where apparently he had to be scorted out of the hospital by police. Brought to [facility] where he called again and same [facility] and brought him here for eval. Patient comes here for chest pain and SOB. States that is from and infection and only "morphine" works for him. Records from prior evals show malingering and drug-seeking behavior. Vitals are stable in triage. Awaiting bed placement. Data Data Last Documented VS Vital Signs Date Time Temp Pulse Resp B/P (MAP) Pulse Ox O2 Delivery O2 Flow Rate FiO2 11/17/16 22:09 97.9 78 16 134/76 (95) 98 MDM Medical Record Reviewed: Yes Supervised Visit with DEANGELO: No Robert Winchester Nov 17, 2016 22:21
[2016-11-18] MEDS ORDERED: MORP1TAB26 PO (01:05)
[2016-11-18] MEDS ORDERED: POTA8CAP PO (01:05)
== END 2016-11-18 00:59 | disposition left against medical advice (07) ==
LOC: NEPE 21:59
DX: R07.9 Chest pain, unspecified (principal)
CPT/HCPCS: 99283

== ENCOUNTER 2016-11-18 00:08 | Emergency (ER) | payer OTHER ==
[~2016-11-18] VITALS: Ht 180.3 cm; Wt 66.0 kg
[2016-11-18 00:11] VITALS: BP 126/78; PULSE 72; RESP 16; TEMP 98.2; O2SAT 98
[2016-11-18] MEDS ORDERED: POTA8CAP PO (01:05)
[2016-11-18] MEDS ORDERED: MORP1TAB26 PO (01:05)
[2016-11-18] MEDS ORDERED: SODIUM CHLORID 0.9% 500 ML INJ 500 ML IV ONE (01:15)
[2016-11-18] MEDS ORDERED: NITROGLYCERIN 0.4 MG SL 25 TABS/BTL SL ONE (01:15)
[2016-11-18] MEDS ORDERED: SODIUM CHLORIDE 0.9% FLUSH 10 ML FLUSH IVF PRN (01:15)
--- NOTE | 2016-11-18 01:18 | PD ---
HPI Chief Complaint: Chest Pain Time Seen by Provider: 01:05 Travel History International Travel<30 days: No Contact w/Intl Traveler<30days: No Traveled to known affect area: No History of Present Illness HPI The patient is a 31 year old male who presents to the [facility] emergency department with a history of chest pain and shortness of breath that has been going on for the last 2 days. The patient immediately on my arrival to the room is demanding treatment with morphine and a muscle relaxer. The patient reports a history of recently being admitted to the hospital in [place] on October 23. He reports that he was a STEMI alert. He reports he was taken to the cardiac catheterization lab where no blockages were noted in his coronary arteries, however he was diagnosed with pericarditis. The patient reports a history of being discharged from the hospital that day and then placed in residential for the next 7 days. PCP: in [facility] Past Medical History Narrative Medical The patient reports a past medical history of leukemia, hyperlipidemia, hypertension, sickle cell anemia, pericarditis, history of chronic pain. Hx Anticoagulant Therapy: Yes (Xarelto) Anemia: Yes Asthma: Yes Autoimmune Disease: Yes (Leukemia) Bipolar Disorder: Yes Cardiac Catheterization: Yes Cardiovascular Problems: Yes (CAD, Anemia) High Cholesterol: Yes Chemotherapy: Yes Chest Pain: Yes Cirrhosis: Yes Coronary Artery Disease: Yes Diminished Hearing: No Hepatitis: Yes Hypertension: Yes Inguinal Hernia: Yes Respiratory: Yes Immunizations Current: Yes Pancreatitis: Yes Renal Failure: Yes Sickle Cell Disease: Yes Thyroid Disease: Yes Past Surgical History Narrative Surgical The patient's past surgical history is significant for an inguinal hernia repair , left shoulder surgery, right knee surgery, cholecystectomy, recent cardiac catheterization. Abdominal Surgery: Yes (INGUINAL HERNIA) Cholecystectomy: Yes Social History Alcohol Use: No Tobacco Use: Yes (1 cig daily) Substance Use: Yes (marijuana) Allergies-Medications (Allergen,Severity, Reaction): Coded Allergies: clopidogrel (Unverified Allergy, Severe, Chest Pain, 11/17/16) erythromycin base (Unverified Allergy, Severe, 11/17/16) ketorolac (Unverified Allergy, Severe, 11/17/16) ondansetron (Unverified Allergy, Severe, Hives, 11/17/16) prochlorperazine (Unverified Allergy, Severe, 11/17/16) Sulfa (Sulfonamide Antibiotics) (Unverified Allergy, Unknown, 11/17/16) acetaminophen (Unverified Allergy, Unknown, 11/17/16) amoxicillin (Unverified Allergy, Unknown, HIVES, SOB, 11/17/16) aspirin (Unverified Allergy, Unknown, 11/17/16) citalopram (Unverified Allergy, Unknown, 11/17/16) diclofenac (Unverified Allergy, Unknown, 11/17/16) etodolac (Unverified Allergy, Unknown, 11/17/16) fluphenazine (Unverified Allergy, Unknown, 11/17/16) flurbiprofen (Unverified Allergy, Unknown, 11/17/16) haloperidol (Unverified Allergy, Unknown, 11/17/16) ibuprofen (Unverified Allergy, Unknown, 11/17/16) indomethacin (Unverified Allergy, Unknown, 11/17/16) ketoprofen (Unverified Allergy, Unknown, 11/17/16) lorazepam (Unverified Allergy, Unknown, 11/17/16) metoclopramide (Unverified Allergy, Unknown, 11/17/16) naproxen (Unverified Allergy, Unknown, 11/17/16) oxaprozin (Unverified Allergy, Unknown, 11/17/16) oxycodone (Unverified Allergy, Unknown, 11/17/16) sertraline (Unverified Allergy, Unknown, 11/17/16) tramadol (Unverified Allergy, Unknown, 11/17/16) vancomycin (Unverified Allergy, Unknown, SOB, 11/17/16) ziprasidone (Unverified Allergy, Unknown, 11/17/16) Reported Meds & Prescriptions Reported Meds & Active Scripts Active Reported Morphine ER (Morphine Sulfate) 60 Mg Tab 60 Mg PO BID Potassium Chloride ER (Potassium Chloride) 8 Meq Cap 8 Meq PO BID Clonidine (Clonidine HCl) 0.2 Mg Tab 0.2 Mg PO BID Simvastatin 20 Mg Tab 20 Mg PO HS Folic Acid 1 Mg Tablet Feosol (Ferrous Sulfate) 200 Mg Tab 325 Mg PO BIDPC Xarelto (Rivaroxaban) 15 Mg Tab 15 Mg PO BID Valium (Diazepam) 5 Mg Tab 5 Mg PO BID Review of Systems Except as stated in HPI: all other systems reviewed are Neg General / Constitutional: No: Fever Eyes: No: Visual changes HENT: No: Headaches Cardiovascular: Positive: Chest Pain or Discomfort Respiratory: Positive: Shortness of Breath Gastrointestinal: No: Abdominal Pain Genitourinary: No: Dysuria Musculoskeletal: Positive: Myalgias, Arthralgias, Pain Skin: No Rash Neurologic: No: Weakness, Focal Abnormalities, Change in Mentation, Slurred Speech, Sensory Disturbance Psychiatric: No: Depression Endocrine: No: Polydipsia Hematologic/Lymphatic: No: Easy Bruising Physical Exam Exam Limitations: Left before Exam Complete Narrative I was called out of the room after discussing the patient's history with him prior to doing his physical examination. By the time I went back to examine the patient the patient had reportedly left AGAINST MEDICAL ADVICE. The patient reported that he wanted morphine and a muscle relaxer and when he was told that IV access and laboratory studies would need to be done first he decided to leave. Data Data Last Documented VS Vital Signs Date Time Temp Pulse Resp B/P (MAP) Pulse Ox O2 Delivery O2 Flow Rate FiO2 11/18/16 03:12 11/18/16 00:11 98.2 72 16 98 Orders Orders Electrocardiogram (11/18/16 01:13) Ecg Monitoring (11/18/16 01:13) Bilateral Bp Monitoring (11/18/16 01:13) Iv Access Insert/Monitor (11/18/16:13) Oximetry (11/18/16 01:13) Oxygen Administration (11/18/16 01:13) Sodium Chloride 0.9% Flush (Ns Flush) (11/18/16 01:15) Nitroglycerin Sl (Nitrostat Sl) (11/18/16:15) Sodium Chlorid 0.9% 500 Ml Inj (Ns 500 M (11/18/16 01:15) MDM Medical Decision Making Medical Screen Exam Complete: Yes Emergency Medical Condition: Yes Medical Record Reviewed: Yes Differential Diagnosis Acute coronary syndrome, versus recurrent pericarditis, versus pneumonia, versus pneumothorax, versus congestive heart failure Narrative Course During the course of the patients emergency department visit, the patients history, examination, and differential diagnosis were reviewed with the patient. The patient was placed on a development expert with oximetry and blood pressure monitoring. The patient was demanding the administration of morphine and a muscle relaxer. I explained that the patient would require an ECG, chest x-ray, laboratory studies to further evaluate after IV access was obtained. The patient became belligerent with the nursing staff after I was called out of the room for another patient. The patient then decided to leave AGAINST MEDICAL ADVICE. AMA: The risks of leaving against medical advice without further evaluation treatment were discussed with the patient. These risks include cardiac dysfunction, cardiac dysrhythmia, possible heart attack, possible stroke or . The patient indicated understanding of these risks and appeared to have the capacity to make this decision. Diagnosis Primary Impression: Chest pain Qualified Codes: R07.9 - Chest pain, unspecified Disposition: 07 AGAINST MEDICAL ADVICE Condition: Stable Chel Pedraza MD Nov 18, 2016 01:18
--- NOTE | 2016-11-18 15:05 | EKG ---
Date Performed: 11/18/2016 Time Performed: 00:25:30 PTAGE: 31 years EKG: Sinus rhythm VOLTAGE CRITERIA FOR LVH NONSPECIFIC ST ELEVATION ABNORMAL ECG PREVIOUS TRACING : 08/06/2016 17.41 Compared to prior tracing no significant change DOCTOR: Dmitry Holloway Interpretating Date/Time 11/18/2016 15:04:39
== END 2016-11-18 03:00 | disposition left against medical advice (07) ==
LOC: NEPE 00:08
DX: R07.9 Chest pain, unspecified (principal)
CPT/HCPCS: 93005; 99283

== ENCOUNTER 2016-11-19 09:34 | Emergency (ER) | payer SELFPAY ==
[~2016-11-19] VITALS: Ht 180.3 cm; Wt 70.0 kg
[~2016-11-19 09:34] MED LIST changes: -HYDR8TAB PO; +MORP1TAB26 PO; +POTA8CAP PO
[2016-11-19 09:37] VITALS: BP 133/91; PULSE 68; RESP 17; TEMP 97.9; O2SAT 98
--- NOTE | 2016-11-19 11:05 | PD ---
HPI Chief Complaint: Injury Time Seen by Provider: 10:07 Travel History International Travel<30 days: No Contact w/Intl Traveler<30days: No Traveled to known affect area: No History of Present Illness HPI is a 31-year-old male who comes in stating he needs wound care and crutches. He was seen here yesterday for foot pain. He has also been seen here this week for chest pain. Each time he demands food and signs out AMA. He does say he is homeless. He says he was at [facility] last night and they did not do anything for him, so he came here. He says that he has a chronic pain in his leg and he needs help with walking. He does not want any testing at this time. He says he really just wants wound care and crutches. He cannot tell me what kind of injury he had to his foot. PFSH Past Medical History Hx Anticoagulant Therapy: Yes (Xarelto) Anemia: Yes Asthma: Yes Autoimmune Disease: Yes (Leukemia) Bipolar Disorder: Yes Cardiac Catheterization: Yes Cardiovascular Problems: Yes (CAD, Anemia) High Cholesterol: Yes Chemotherapy: Yes Chest Pain: Yes Cirrhosis: Yes Coronary Artery Disease: Yes Diminished Hearing: No Hepatitis: Yes Hypertension: Yes Inguinal Hernia: Yes Respiratory: Yes Immunizations Current: Yes Pancreatitis: Yes Renal Failure: Yes Sickle Cell Disease: Yes Thyroid Disease: Yes Past Surgical History Abdominal Surgery: Yes (INGUINAL HERNIA) Cholecystectomy: Yes Social History Alcohol Use: No Tobacco Use: Yes (1 cig daily) Substance Use: Yes (marijuana) Allergies-Medications (Allergen,Severity, Reaction): Coded Allergies: clopidogrel (Unverified Allergy, Severe, Chest Pain, 11/17/16) erythromycin base (Unverified Allergy, Severe, 11/17/16) ketorolac (Unverified Allergy, Severe, 11/17/16) ondansetron (Unverified Allergy, Severe, Hives, 11/17/16) prochlorperazine (Unverified Allergy, Severe, 11/17/16) Sulfa (Sulfonamide Antibiotics) (Unverified Allergy, Unknown, 11/17/16) acetaminophen (Unverified Allergy, Unknown, 11/17/16) amoxicillin (Unverified Allergy, Unknown, HIVES, SOB, 11/17/16) aspirin (Unverified Allergy, Unknown, 11/17/16) citalopram (Unverified Allergy, Unknown, 11/17/16) diclofenac (Unverified Allergy, Unknown, 11/17/16) etodolac (Unverified Allergy, Unknown, 11/17/16) fluphenazine (Unverified Allergy, Unknown, 11/17/16) flurbiprofen (Unverified Allergy, Unknown, 11/17/16) haloperidol (Unverified Allergy, Unknown, 11/17/16) ibuprofen (Unverified Allergy, Unknown, 11/17/16) indomethacin (Unverified Allergy, Unknown, 11/17/16) ketoprofen (Unverified Allergy, Unknown, 11/17/16) lorazepam (Unverified Allergy, Unknown, 11/17/16) metoclopramide (Unverified Allergy, Unknown, 11/17/16) naproxen (Unverified Allergy, Unknown, 11/17/16) oxaprozin (Unverified Allergy, Unknown, 11/17/16) oxycodone (Unverified Allergy, Unknown, 11/17/16) sertraline (Unverified Allergy, Unknown, 11/17/16) tramadol (Unverified Allergy, Unknown, 11/17/16) vancomycin (Unverified Allergy, Unknown, SOB, 11/17/16) ziprasidone (Unverified Allergy, Unknown, 11/17/16) Reported Meds & Prescriptions Reported Meds & Active Scripts Active Reported Morphine ER (Morphine Sulfate) 60 Mg Tab 60 Mg PO BID Potassium Chloride ER (Potassium Chloride) 8 Meq Cap 8 Meq PO BID Clonidine (Clonidine HCl) 0.2 Mg Tab 0.2 Mg PO BID Simvastatin 20 Mg Tab 20 Mg PO HS Folic Acid 1 Mg Tablet Feosol (Ferrous Sulfate) 200 Mg Tab 325 Mg PO BIDPC Xarelto (Rivaroxaban) 15 Mg Tab 15 Mg PO BID Valium (Diazepam) 5 Mg Tab 5 Mg PO BID Review of Systems ROS Limitations: Uncooperative General / Constitutional: No: Fever, Chills Gastrointestinal: No: Nausea, Vomiting Musculoskeletal: Positive: Pain Skin: No Rash, No Change in Pigmentation Physical Exam Narrative GENERAL: Awake and alert, in no acute distress. SKIN: Focused skin assessment warm/dry. blister to left second toe. no signs of infection. HEAD: Atraumatic. Normocephalic. EYES: Pupils equal and round. No scleral icterus. ENT: Mucous membranes pink and moist. CARDIOVASCULAR: Regular rate and rhythm. No murmur appreciated. RESPIRATORY: No accessory muscle use. Clear to auscultation. Breath sounds equal bilaterally. MUSCULOSKELETAL: No obvious deformities. No clubbing. No cyanosis. No edema. No tenderness to palpation. NEUROLOGICAL: Awake and alert. No obvious cranial nerve deficits. Motor grossly within normal limits. Normal speech. Data Data Last Documented VS Vital Signs Date Time Temp Pulse Resp B/P (MAP) Pulse Ox O2 Delivery O2 Flow Rate FiO2 11/19/16 09:37 97.9 68 17 133/91 (105) 98 Nasal Cannula Orders Orders Crutches (11/19/16 10:15) Ed Discharge Order (11/19/16 11:00) [facility] Medical Decision Making Medical Screen Exam Complete: Yes Emergency Medical Condition: Yes Medical Record Reviewed: Yes Differential Diagnosis Malingering vs wound vs fracture Narrative Course Patient is a 31 year old male who comes in because he wants wound care and crutches. He has blister on his toe. He is refusing Xray or other testing. He is given crutches and he left the ED. Diagnosis Primary Impression: Malingering Additional Instructions: Follow up with the [facility]. Disposition: 01 DISCHARGE HOME Condition: Stable Fatou Hernandez MD Nov 19, 2016 11:05
== END 2016-11-19 11:12 | disposition home or self-care (01) ==
LOC: NEPD 09:34
DX: S90.426A Blister (nonthermal), unspecified lesser toe(s), initial encounter (principal); F17.210 Nicotine dependence, cigarettes, uncomplicated; Z76.5 Malingerer [conscious simulation]; Z59.0 Homelessness; D57.1 Sickle-cell disease without crisis; I25.10 Atherosclerotic heart disease of native coronary artery without angina pectoris; E78.5 Hyperlipidemia, unspecified; K74.69 Other cirrhosis of liver; I10 Essential (primary) hypertension; F31.9 Bipolar disorder, unspecified; J45.909 Unspecified asthma, uncomplicated; Z79.899 Other long term (current) drug therapy; X58.XXXA Exposure to other specified factors, initial encounter
CPT/HCPCS: 99283; E0113

== ENCOUNTER 2016-11-21 05:02 | Emergency (ER) | payer SELFPAY ==
[~2016-11-21] VITALS: Ht 180.3 cm; Wt 70.0 kg
[2016-11-21 05:06] VITALS: BP 108/57; PULSE 88; RESP 18; TEMP 97.5; O2SAT 95
--- NOTE | 2016-11-21 05:34 | PD ---
HPI Chief Complaint: Abdominal Pain Time Seen by Provider: 05:14 Travel History International Travel<30 days: No Contact w/Intl Traveler<30days: No Traveled to known affect area: No History of Present Illness HPI 31-year-old male presents from triage with complaint of abdominal pain that is been going on for a while. He states he recently was at [facility] and they told him his liver was failing and he has pancreatitis. He keeps referring to a doctor in [place] that he wants me to call to confirm this. He is yelling and being uncooperative and difficult to get additional history from. He denies other complaints PFSH Past Medical History Narrative Medical By records, patient states he has sickle cell SC and leukemia and check the records Hx Anticoagulant Therapy: Yes (Xarelto) Anemia: Yes Asthma: Yes Autoimmune Disease: Yes (Leukemia) Bipolar Disorder: Yes Cardiac Catheterization: Yes Cardiovascular Problems: Yes (CAD, Anemia) High Cholesterol: Yes Chemotherapy: Yes Chest Pain: Yes Cirrhosis: Yes Coronary Artery Disease: Yes Diminished Hearing: No Hepatitis: Yes Hypertension: Yes Inguinal Hernia: Yes Respiratory: Yes Immunizations Current: Yes Pancreatitis: Yes Renal Failure: Yes Sickle Cell Disease: Yes Thyroid Disease: Yes Tetanus Vaccination: < 5 Years Past Surgical History Narrative Surgical By records Abdominal Surgery: Yes (INGUINAL HERNIA) Cholecystectomy: Yes Social History Narrative Social History By records Alcohol Use: No Tobacco Use: Yes (1 cig daily) Substance Use: Yes (marijuana) Allergies-Medications (Allergen,Severity, Reaction): Coded Allergies: clopidogrel (Unverified Allergy, Severe, Chest Pain, 11/17/16) erythromycin base (Unverified Allergy, Severe, 11/17/16) ketorolac (Unverified Allergy, Severe, 11/17/16) ondansetron (Unverified Allergy, Severe, Hives, 11/17/16) prochlorperazine (Unverified Allergy, Severe, 11/17/16) Sulfa (Sulfonamide Antibiotics) (Unverified Allergy, Unknown, 11/17/16) acetaminophen (Unverified Allergy, Unknown, 11/17/16) amoxicillin (Unverified Allergy, Unknown, HIVES, SOB, 11/17/16) aspirin (Unverified Allergy, Unknown, 11/17/16) citalopram (Unverified Allergy, Unknown, 11/17/16) diclofenac (Unverified Allergy, Unknown, 11/17/16) etodolac (Unverified Allergy, Unknown, 11/17/16) fluphenazine (Unverified Allergy, Unknown, 11/17/16) flurbiprofen (Unverified Allergy, Unknown, 11/17/16) haloperidol (Unverified Allergy, Unknown, 11/17/16) ibuprofen (Unverified Allergy, Unknown, 11/17/16) indomethacin (Unverified Allergy, Unknown, 11/17/16) ketoprofen (Unverified Allergy, Unknown, 11/17/16) lorazepam (Unverified Allergy, Unknown, 11/17/16) metoclopramide (Unverified Allergy, Unknown, 11/17/16) naproxen (Unverified Allergy, Unknown, 11/17/16) oxaprozin (Unverified Allergy, Unknown, 11/17/16) oxycodone (Unverified Allergy, Unknown, 11/17/16) sertraline (Unverified Allergy, Unknown, 11/17/16) tramadol (Unverified Allergy, Unknown, 11/17/16) vancomycin (Unverified Allergy, Unknown, SOB, 11/17/16) ziprasidone (Unverified Allergy, Unknown, 11/17/16) Reported Meds & Prescriptions Reported Meds & Active Scripts Active Reported Morphine ER (Morphine Sulfate) 60 Mg Tab 60 Mg PO BID Potassium Chloride ER (Potassium Chloride) 8 Meq Cap 8 Meq PO BID Clonidine (Clonidine HCl) 0.2 Mg Tab 0.2 Mg PO BID Simvastatin 20 Mg Tab 20 Mg PO HS Folic Acid 1 Mg Tablet Feosol (Ferrous Sulfate) 200 Mg Tab 325 Mg PO BIDPC Xarelto (Rivaroxaban) 15 Mg Tab 15 Mg PO BID Valium (Diazepam) 5 Mg Tab 5 Mg PO BID Review of Systems ROS Limitations: Uncooperative Physical Exam Exam Limitations: Uncooperative Narrative GENERAL: Well-nourished, well-developed patient. SKIN: Warm and dry. HEAD: Normocephalic and atraumatic. EYES: No injection or drainage. ENT: No nasal drainage noted. NECK: Supple, trachea midline. CARDIOVASCULAR: Regular rate and rhythm RESPIRATORY: No increased effort. No accessory muscle use. GASTROINTESTINAL: Abdomen soft, non-tender, nondistended. EXTREMITIES: No edema. NEUROLOGICAL: Awake and alert. Motor and sensory grossly within normal limits. Normal speech. Data Data Last Documented VS Vital Signs Date Time Temp Pulse Resp B/P (MAP) Pulse Ox O2 Delivery O2 Flow Rate FiO2 11/21/16 05:06 97.5 88 18 108/57 (74) 95 Orders Orders Complete Blood Count With Diff (11/21/16 05:22) Comprehensive Metabolic Panel (11/21/16 05:22) Lipase (11/21/16 05:22) Drug Screen, Random Urine (11/21/16 05:23) Ed Discharge Order (11/21/16 06:17) Labs Laboratory Tests Test 11/21/16 05:25 White Blood Count 5.5 TH/MM3 Red Blood Count 3.68 MIL/MM3 Hemoglobin 11.0 GM/DL Hematocrit 33.1 % Mean Corpuscular Volume 90.1 FL Mean Corpuscular Hemoglobin 29.9 PG Mean Corpuscular Hemoglobin Concent 33.2 % Red Cell Distribution Width 14.5 % Platelet Count 135 TH/MM3 Mean Platelet Volume 7.8 FL Neutrophils (%) (Auto) 50.6 % Lymphocytes (%) (Auto) 31.3 % Monocytes (%) (Auto) 17.0 % Eosinophils (%) (Auto) 0.7 % Basophils (%) (Auto) 0.4 % Neutrophils # (Auto) 2.8 TH/MM3 Lymphocytes # (Auto) 1.7 TH/MM3 Monocytes # (Auto) 0.9 TH/MM3 Eosinophils # (Auto) 0.0 TH/MM3 Basophils # (Auto) 0.0 TH/MM3 CBC Comment DIFF FINAL Differential Comment Blood Urea Nitrogen 21 MG/DL Creatinine 1.03 MG/DL Random Glucose 88 MG/DL Total Protein 7.4 GM/DL Albumin 3.8 GM/DL Calcium Level 8.5 MG/DL Alkaline Phosphatase 64 U/L Aspartate Amino Transf (AST/SGOT) 38 U/L Alanine Aminotransferase (ALT/SGPT) 68 U/L Total Bilirubin 0.5 MG/DL Sodium Level 138 MEQ/L Potassium Level 3.5 MEQ/L Chloride Level 106 MEQ/L Carbon Dioxide Level 24.9 MEQ/L Anion Gap 7 MEQ/L Estimat Glomerular Filtration Rate 103 ML/MIN Lipase 97 U/L MDM Medical Decision Making Medical Screen Exam Complete: Yes Emergency Medical Condition: Yes Medical Record Reviewed: Yes (past history confirm, multiple malingering and uncooperative visits) Interpretation(s) CBC & BMP Diagram 11/21/16 05:25 Total Protein 7.4, Albumin 3.8, Calcium Level 8.5, Alkaline Phosphatase 64, Aspartate Amino Transf (AST/SGOT) 38 H, Alanine Aminotransferase (ALT/SGPT) 68, Total Bilirubin 0.5 Differential Diagnosis Malingering, pancreatitis, gastritis Narrative Course Will check blood work and reevaluate. Patient initially refused this but then agreed Blood work shows no signs of liver failure or pancreatitis but patient claims he recently had. He is sleeping in room on my recheck and on awakening demands food. He denies any urinary tract infections or hematuria. We'll cancel urinalysis and patient is cleared to go. He states he will just go somewhere else and security helps escort him out, he denies new complaints Diagnosis Primary Impression: Abdominal pain Qualified Codes: R10.9 - Unspecified abdominal pain Patient Instructions: General Instructions Additional Instructions: tylenol as needed, follow with primary as needed, return with any EMERGENT need Med/Other Pt SpecificInfo: No Change to Meds Disposition: 01 DISCHARGE HOME Condition: Stable Marcela Palma MD Nov 21, 2016 05:33
[2016-11-21 05:37] LABS: AUTOMATED NEUTROPHIL # 2.8 TH/MM3 (1.8-7.7); BASOPHIL % 0.4 % (0.0-2.0); EOSINOPHIL % 0.7 % (0.0-4.0); HEMATOCRIT 33.1 % (39.0-51.0); HEMO FLAGS DIFF FINAL; LYMPH % 31.3 % (9.0-44.0); LYMPHOCYTE # 1.7 TH/MM3 (1.0-4.8); MEAN CELL VOLUME 90.1 FL (80.0-100.0); MEAN CORPUSCULAR HEMOGLOBIN 29.9 PG (27.0-34.0); MEAN CORPUSCULAR HGB CONC 33.2 % (32.0-36.0); NEUT % 50.6 % (16.0-70.0); PLATELET COUNT 135 TH/MM3 (150-450); RED BLOOD COUNT 3.68 MIL/MM3 (4.50-5.90); RED CELL DISTRIBUTION WIDTH 14.5 % (11.6-17.2); WHITE BLOOD COUNT 5.5 TH/MM3 (4.0-11.0)
[2016-11-21 06:10] LABS: ALT (GPT) 68 U/L (12-78); ANION GAP 7 MEQ/L (5-15); AST (GOT) 38 U/L (15-37); BICARBONATE 24.9 MEQ/L (21.0-32.0); BLOOD UREA NITROGEN 21 MG/DL (7-18); CHLORIDE 106 MEQ/L (98-107); GLOMERULAR FILTRATION RATE 103 ML/MIN (>89); POTASSIUM 3.5 MEQ/L (3.5-5.1); SODIUM (NA) 138 MEQ/L (136-145)
[2016-11-21 06:12] LABS: ALKALINE PHOSPHATASE 64 U/L (45-117); TOTAL BILIRUBIN ADULT 0.5 MG/DL (0.2-1.0)
== END 2016-11-21 06:30 | disposition home or self-care (01) ==
LOC: NEPC 05:02
DX: R10.9 Unspecified abdominal pain (principal); D57.3 Sickle-cell trait; C95.90 Leukemia, unspecified not having achieved remission; D64.9 Anemia, unspecified; J45.909 Unspecified asthma, uncomplicated; F31.9 Bipolar disorder, unspecified; E78.5 Hyperlipidemia, unspecified; I25.10 Atherosclerotic heart disease of native coronary artery without angina pectoris; K74.60 Unspecified cirrhosis of liver; I10 Essential (primary) hypertension; K85.90 Acute pancreatitis without necrosis or infection, unspecified; Z79.899 Other long term (current) drug therapy
CPT/HCPCS: 80053; 83690; 85025; 99283

== ENCOUNTER 2017-03-28 12:45 | Emergency (ER) | payer SELFPAY ==
[~2017-03-28] VITALS: Ht 180.3 cm; Wt 70.0 kg
[2017-03-28 12:52] VITALS: BP 123/62; PULSE 82; RESP 16; TEMP 98.1; O2SAT 98
[2017-03-28] MEDS ORDERED: ALBUTEROL SULFATE 90 MCG/ACT HFA 8 GM INHALER INH ONE (13:30)
--- NOTE | 2017-03-28 13:35 | PD ---
HPI Chief Complaint: Pain: Acute or Chronic Time Seen by Provider: 13:09 Travel History International Travel<30 days: No Contact w/Intl Traveler<30days: No Traveled to known affect area: No History of Present Illness HPI 31-year-old male arrives complaining of left dentalgia in the region of the first lower molar. He also has chest pain. He has had similar pains in the past. He states he was seen at [facility] 3 times in the last day. He also notes a need for refill of his medications. He reports a history of sickle cell disease, lymphoma, and chronic pain. No fever. He reports receiving inhalers from outside facility with good effect. PFSH Past Medical History Hx Anticoagulant Therapy: Yes (Xarelto) Anemia: Yes Asthma: Yes Autoimmune Disease: Yes (Leukemia) Bipolar Disorder: Yes Cardiac Catheterization: Yes Cardiovascular Problems: Yes (CAD, Anemia) High Cholesterol: Yes Chemotherapy: Yes Chest Pain: Yes Cirrhosis: Yes Coronary Artery Disease: Yes Diminished Hearing: No Hepatitis: Yes Hypertension: Yes Inguinal Hernia: Yes Respiratory: Yes Immunizations Current: Yes Pancreatitis: Yes Renal Failure: Yes Sickle Cell Disease: Yes Thyroid Disease: Yes Past Surgical History Abdominal Surgery: Yes (INGUINAL HERNIA) Cholecystectomy: Yes Social History Alcohol Use: No Tobacco Use: Yes (1 cig daily) Substance Use: Yes (marijuana) Allergies-Medications (Allergen,Severity, Reaction): Coded Allergies: clopidogrel (Unverified Allergy, Severe, Chest Pain, 03/28/17) erythromycin base (Unverified Allergy, Severe, 03/28/17) ketorolac (Unverified Allergy, Severe, 03/28/17) ondansetron (Unverified Allergy, Severe, Hives, 03/28/17) prochlorperazine (Unverified Allergy, Severe, 03/28/17) Sulfa (Sulfonamide Antibiotics) (Unverified Allergy, Unknown, 03/28/17) acetaminophen (Unverified Allergy, Unknown, 03/28/17) amoxicillin (Unverified Allergy, Unknown, HIVES, SOB, 03/28/17) aspirin (Unverified Allergy, Unknown, 03/28/17) citalopram (Unverified Allergy, Unknown, 03/28/17) diclofenac (Unverified Allergy, Unknown, 03/28/17) etodolac (Unverified Allergy, Unknown, 03/28/17) fluphenazine (Unverified Allergy, Unknown, 03/28/17) flurbiprofen (Unverified Allergy, Unknown, 03/28/17) haloperidol (Unverified Allergy, Unknown, 03/28/17) ibuprofen (Unverified Allergy, Unknown, 03/28/17) indomethacin (Unverified Allergy, Unknown, 03/28/17) ketoprofen (Unverified Allergy, Unknown, 03/28/17) lorazepam (Unverified Allergy, Unknown, 03/28/17) metoclopramide (Unverified Allergy, Unknown, 03/28/17) naproxen (Unverified Allergy, Unknown, 03/28/17) oxaprozin (Unverified Allergy, Unknown, 03/28/17) oxycodone (Unverified Allergy, Unknown, 03/28/17) sertraline (Unverified Allergy, Unknown, 03/28/17) tramadol (Unverified Allergy, Unknown, 03/28/17) vancomycin (Unverified Allergy, Unknown, SOB, 03/28/17) ziprasidone (Unverified Allergy, Unknown, 03/28/17) Reported Meds & Prescriptions Reported Meds & Active Scripts Active Reported Morphine ER (Morphine Sulfate) 60 Mg Tab 60 Mg PO BID Potassium Chloride ER (Potassium Chloride) 8 Meq Cap 8 Meq PO BID Clonidine (Clonidine HCl) 0.2 Mg Tab 0.2 Mg PO BID Simvastatin 20 Mg Tab 20 Mg PO HS Folic Acid 1 Mg Tablet Feosol (Ferrous Sulfate) 200 Mg Tab 325 Mg PO BIDPC Xarelto (Rivaroxaban) 15 Mg Tab 15 Mg PO BID Valium (Diazepam) 5 Mg Tab 5 Mg PO BID Review of Systems Except as stated in HPI: all other systems reviewed are Neg General / Constitutional: No: Fever Physical Exam Narrative GENERAL: 31-year-old male pleasant well-nourished well-developed no acute distress Vital Signs Date Time Temp Pulse Resp B/P (MAP) Pulse Ox O2 Delivery O2 Flow Rate FiO2 03/28/17 12:52 98.1 82 16 123/62 (82) 98 SKIN: Warm and dry. HEAD: Atraumatic. Normocephalic. EYES: Pupils equal and round. No scleral icterus. No injection or drainage. ENT: No nasal bleeding or discharge. Mucous membranes pink and moist. Left lower dentition reveals 1 fractured molar without abscess. Appropriate tenderness. NECK: Trachea midline. No JVD. CARDIOVASCULAR: Regular rate. Rhythm regular. RESPIRATORY: Wheezing is present bilaterally. Minimal tachypnea. GASTROINTESTINAL: Abdomen soft, non-tender, nondistended. Hepatic and splenic margins not palpable. MUSCULOSKELETAL: Extremities without clubbing, cyanosis, or edema. No obvious deformities. NEUROLOGICAL: Awake and alert. No obvious cranial nerve deficits. Motor grossly within normal limits. Five out of 5 muscle strength in the arms and legs. Normal speech. PSYCHIATRIC: Appropriate mood and affect; insight and judgment normal. Data Data Last Documented VS Vital Signs Date Time Temp Pulse Resp B/P (MAP) Pulse Ox O2 Delivery O2 Flow Rate FiO2 03/28/17 14:11 03/28/17 12:52 98.1 82 16 98 Orders Orders Albuterol Hfa Inh (Proair Hfa Inh) (03/28/17 13:30) Ed Discharge Order (03/28/17 13:35) [facility] Medical Decision Making Medical Screen Exam Complete: Yes Emergency Medical Condition: Yes Medical Record Reviewed: Yes Differential Diagnosis Dentalgia, dental fracture, asthma, chronic pain Narrative Course Patient will receive an albuterol inhaler. Given his allergy profile he is unfortunately not readily amenable for any oral analgesia. Review of his medical record reveals at least 15 prior admissions for similar complaints which have included malingering drug-seeking behavior and homelessness. Diagnosis Primary Impression: Chronic pain Qualified Codes: G89.29 - Other chronic pain Additional Impressions: Wheezing Dentalgia Referrals: Primary Care Physician 2 days Med/Other Pt SpecificInfo: No Change to Meds Disposition: 01 DISCHARGE HOME Condition: Stable Arash Holloway MD Mar 28, 2017 13:35
== END 2017-03-28 14:15 | disposition home or self-care (01) ==
LOC: NEPC 12:45
DX: G89.29 Other chronic pain (principal); J45.909 Unspecified asthma, uncomplicated; E78.00 Pure hypercholesterolemia, unspecified; F17.210 Nicotine dependence, cigarettes, uncomplicated
CPT/HCPCS: 99281

== ENCOUNTER 2017-04-02 08:58 | Emergency (ER) | payer SELFPAY ==
[~2017-04-02] VITALS: Ht 182.9 cm; Wt 61.5 kg
[2017-04-02 09:06] VITALS: BP 142/76; PULSE 73; RESP 18; TEMP 98.2; O2SAT 99
--- NOTE | 2017-04-02 09:48 | PD ---
HPI Chief Complaint: Chest Pain Time Seen by Provider: 09:44 Travel History International Travel<30 days: No Contact w/Intl Traveler<30days: No Traveled to known affect area: No History of Present Illness HPI 31-year-old male presents to the emergency department with complaint of "substernal chest pain" 12 hours. He has chronic chest pain and chronic pain and says his pain is consistent with pain in the past. He was seen at [facility] this morning and was told to follow-up with his primary care provider. During his visit at [facility] he was also told that his pancreatitis was acting up, but they gave him some fluids and he was good to follow-up outpatient. He denies abdominal pain, vomiting. He said he also went to his primary care provider this morning, at the health department, and an EKG showed that he was having a "flareup of pericarditis" and was told to come to the ER. Patient is also requesting that he needs refills on his morphine. He denies shortness of breath. He has not taken any medications or tried any treatments to alleviate his symptoms. Rates pain 610. Describes it as a pressure. No known relieving or aggravating factors. Primary care provider's health department. 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 Reports multiple other chronic illnesses that are on the chart. Multiple allergies as verified on the chart. 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 Has no other medical complaints. No other modifying factors or associated signs and symptoms. PFSH Past Medical History Hx Anticoagulant Therapy: Yes (Xarelto) Anemia: Yes Asthma: Yes Autoimmune Disease: Yes (Leukemia) Bipolar Disorder: Yes Cardiac Catheterization: Yes Cardiovascular Problems: Yes High Cholesterol: Yes Chemotherapy: Yes Chest Pain: Yes Cirrhosis: Yes Coronary Artery Disease: Yes Diminished Hearing: No Hepatitis: Yes Hypertension: Yes Inguinal Hernia: Yes Respiratory: Yes Immunizations Current: Yes Pancreatitis: Yes Renal Failure: Yes Sickle Cell Disease: Yes Thyroid Disease: Yes Past Surgical History Abdominal Surgery: Yes (INGUINAL HERNIA) Cholecystectomy: Yes Social History Alcohol Use: No Tobacco Use: Yes (1 cig daily) Substance Use: Yes (marijuana) Allergies-Medications (Allergen,Severity, Reaction): Coded Allergies: clopidogrel (Unverified Allergy, Severe, Chest Pain, 03/28/17) erythromycin base (Unverified Allergy, Severe, 03/28/17) ketorolac (Unverified Allergy, Severe, 03/28/17) ondansetron (Unverified Allergy, Severe, Hives, 03/28/17) prochlorperazine (Unverified Allergy, Severe, 03/28/17) Sulfa (Sulfonamide Antibiotics) (Unverified Allergy, Unknown, 03/28/17) acetaminophen (Unverified Allergy, Unknown, 03/28/17) amoxicillin (Unverified Allergy, Unknown, HIVES, SOB, 03/28/17) aspirin (Unverified Allergy, Unknown, 03/28/17) citalopram (Unverified Allergy, Unknown, 03/28/17) diclofenac (Unverified Allergy, Unknown, 03/28/17) etodolac (Unverified Allergy, Unknown, 03/28/17) fluphenazine (Unverified Allergy, Unknown, 03/28/17) flurbiprofen (Unverified Allergy, Unknown, 03/28/17) haloperidol (Unverified Allergy, Unknown, 03/28/17) ibuprofen (Unverified Allergy, Unknown, 03/28/17) indomethacin (Unverified Allergy, Unknown, 03/28/17) ketoprofen (Unverified Allergy, Unknown, 03/28/17) lorazepam (Unverified Allergy, Unknown, 03/28/17) metoclopramide (Unverified Allergy, Unknown, 03/28/17) naproxen (Unverified Allergy, Unknown, 03/28/17) oxaprozin (Unverified Allergy, Unknown, 03/28/17) oxycodone (Unverified Allergy, Unknown, 03/28/17) sertraline (Unverified Allergy, Unknown, 03/28/17) tramadol (Unverified Allergy, Unknown, 03/28/17) vancomycin (Unverified Allergy, Unknown, SOB, 03/28/17) ziprasidone (Unverified Allergy, Unknown, 03/28/17) Reported Meds & Prescriptions Reported Meds & Active Scripts Active Reported Morphine ER (Morphine Sulfate) 60 Mg Tab 60 Mg PO BID Potassium Chloride ER (Potassium Chloride) 8 Meq Cap 8 Meq PO BID Clonidine (Clonidine HCl) 0.2 Mg Tab 0.2 Mg PO BID Simvastatin 20 Mg Tab 20 Mg PO HS Folic Acid 1 Mg Tablet Feosol (Ferrous Sulfate) 200 Mg Tab 325 Mg PO BIDPC Xarelto (Rivaroxaban) 15 Mg Tab 15 Mg PO BID Valium (Diazepam) 5 Mg Tab 5 Mg PO BID Review of Systems Except as stated in HPI: all other systems reviewed are Neg Physical Exam Narrative GENERAL: Well-nourished, well-developed black male patient, in no acute distress SKIN: Warm and dry. HEAD: Atraumatic. Normocephalic. EYES: Pupils equal and round. No scleral icterus. No injection or drainage. ENT: Mucosa pink and moist. Airway patent. NECK: Trachea midline. CARDIOVASCULAR: Regular rate and rhythm. No murmur appreciated. RESPIRATORY: No accessory muscle use. Breath sounds clear and equal bilaterally. No retractions or tachypnea. GASTROINTESTINAL: Abdomen soft, non-tender, nondistended. Positive bowel sounds. No hepato-splenomegaly, or palpable masses. No guarding. MUSCULOSKELETAL: No obvious deformities. No clubbing. No cyanosis. No edema. NEUROLOGICAL: Awake and alert. Oriented 3. No obvious cranial nerve deficits. Motor grossly within normal limits. Normal speech. PSYCHIATRIC: Appropriate mood and affect; insight and judgment normal. Data Data Last Documented VS Vital Signs Date Time Temp Pulse Resp B/P (MAP) Pulse Ox O2 Delivery O2 Flow Rate FiO2 04/02/17 09:06 98.2 73 18 142/76 (98) 99 Room Air Orders Orders Electrocardiogram (04/02/17 ) Ed Discharge Order (04/02/17 10:02) [facility] Medical Decision Making Medical Screen Exam Complete: Yes Emergency Medical Condition: Yes Medical Record Reviewed: Yes Differential Diagnosis Chest pain, NH, CAD, narcotic seeking, malingering Narrative Course This is a 31-year-old male with complaint of substernal chest pain that has been seen multiple times in the past for the same complaint. He was apparently seen earlier this morning at [facility] for the same complaint and was told to follow-up outpatient. He said he went to the health department and an EKG was done and was told to come to the ER because it showed "a flareup of his pericarditis." EKG and EKG with NSR; without ST elevation or depression; reviewed by Dr. Craft. I discussed the patient with Dr. Craft and we reviewed the patient chart; patient has been seen multiple times in the past with multiple admissions for similar complaints. Dr. Craft agrees with patient discharge. Instructed patient to follow-up outpatient with primary care and cardiology. Instructed patient to follow up with primary care provider. Patient verbalizes understanding and agreement with treatment plan. Patient is medically cleared and stable for discharge. Discussed reasons to return to the emergency department. Patient agrees with treatment plan. The patients vital signs are stable and the patient is stable for outpatient follow- up and treatment. Patient discharged home, stable and in no acute distress. Diagnosis Primary Impression: Chest pain Qualified Codes: R07.9 - Chest pain, unspecified Referrals: Corporate Development Officer Primary Care Physician Patient Instructions: Chest Pain (ED), General Instructions Additional Instructions: Follow-up with cardiology Follow-up with primary care provider Med/Other Pt SpecificInfo: No Change to Meds, No Meds Exist/No RX given Disposition: 01 DISCHARGE HOME Condition: Stable Gerri Higginbotham Apr 02, 2017 09:48
[2017-04-02 10:08] VITALS: BP 116/76
--- NOTE | 2017-04-02 14:45 | EKG ---
Date Performed: 04/02/2017 Time Performed: 09:51:19 PTAGE: 31 years EKG: Sinus rhythm VOLTAGE CRITERIA FOR LVH ABNORMAL ECG PREVIOUS TRACING : 11/18/2016 00.25 Since the prior tracing, there has been no significant swartz DOCTOR: Darline Ballesteros Interpretating Date/Time 04/02/2017 14:40:19
== END 2017-04-02 10:17 | disposition home or self-care (01) ==
LOC: NEPD 08:58
DX: R07.9 Chest pain, unspecified (principal); D64.9 Anemia, unspecified; J45.909 Unspecified asthma, uncomplicated; R94.31 Abnormal electrocardiogram [ECG] [EKG]; F31.9 Bipolar disorder, unspecified; E78.00 Pure hypercholesterolemia, unspecified; K74.60 Unspecified cirrhosis of liver; I25.10 Atherosclerotic heart disease of native coronary artery without angina pectoris; I10 Essential (primary) hypertension
CPT/HCPCS: 93005; 99283

== ENCOUNTER 2017-04-04 12:52 | Emergency (ER) | payer SELFPAY ==
[~2017-04-04] VITALS: Ht 182.9 cm; Wt 65.0 kg
[2017-04-04 13:17] VITALS: BP 116/58; PULSE 74; RESP 17; TEMP 98.2; O2SAT 96
--- NOTE | 2017-04-04 13:28 | PD ---
HPI Chief Complaint: Abdominal Pain Time Seen by Provider: 13:16 Travel History International Travel<30 days: No Contact w/Intl Traveler<30days: No Traveled to known affect area: No History of Present Illness HPI 31yo M who is homeless and has a history of drug seeking behavior with frequent ER visits here with c/o dysuria, dark urine. As per EVAC, pt was taken to [facility] today and went to triage but call 911 and decided he didnt want to go there. Pt was just at [facility] yesterday with discharge diagnosis for myalgias. It appeared that he had labs drawn as well as EKG. Pt was seen at [facility] the day before. He goes to different hospitals almost on daily basis since he is homeless. PFSH Past Medical History Hx Anticoagulant Therapy: Yes (Xarelto) Anemia: Yes Asthma: Yes Autoimmune Disease: Yes (Leukemia) Bipolar Disorder: Yes Cardiac Catheterization: Yes Cardiovascular Problems: Yes High Cholesterol: Yes Chemotherapy: Yes Chest Pain: Yes Cirrhosis: Yes Coronary Artery Disease: Yes Diminished Hearing: No Hepatitis: Yes Hypertension: Yes Inguinal Hernia: Yes Respiratory: Yes Immunizations Current: Yes Pancreatitis: Yes Renal Failure: Yes Sickle Cell Disease: Yes Thyroid Disease: Yes Past Surgical History Abdominal Surgery: Yes (INGUINAL HERNIA) Cholecystectomy: Yes Social History Alcohol Use: No Tobacco Use: Yes (1 cig daily) Substance Use: Yes (marijuana) Allergies-Medications (Allergen,Severity, Reaction): Coded Allergies: clopidogrel (Unverified Allergy, Severe, Chest Pain, 03/28/17) erythromycin base (Unverified Allergy, Severe, 03/28/17) ketorolac (Unverified Allergy, Severe, 03/28/17) ondansetron (Unverified Allergy, Severe, Hives, 03/28/17) prochlorperazine (Unverified Allergy, Severe, 03/28/17) Sulfa (Sulfonamide Antibiotics) (Unverified Allergy, Unknown, 03/28/17) acetaminophen (Unverified Allergy, Unknown, 03/28/17) amoxicillin (Unverified Allergy, Unknown, HIVES, SOB, 03/28/17) aspirin (Unverified Allergy, Unknown, 03/28/17) citalopram (Unverified Allergy, Unknown, 03/28/17) diclofenac (Unverified Allergy, Unknown, 03/28/17) etodolac (Unverified Allergy, Unknown, 03/28/17) fluphenazine (Unverified Allergy, Unknown, 03/28/17) flurbiprofen (Unverified Allergy, Unknown, 03/28/17) haloperidol (Unverified Allergy, Unknown, 03/28/17) ibuprofen (Unverified Allergy, Unknown, 03/28/17) indomethacin (Unverified Allergy, Unknown, 03/28/17) ketoprofen (Unverified Allergy, Unknown, 03/28/17) lorazepam (Unverified Allergy, Unknown, 03/28/17) metoclopramide (Unverified Allergy, Unknown, 03/28/17) naproxen (Unverified Allergy, Unknown, 03/28/17) oxaprozin (Unverified Allergy, Unknown, 03/28/17) oxycodone (Unverified Allergy, Unknown, 03/28/17) sertraline (Unverified Allergy, Unknown, 03/28/17) tramadol (Unverified Allergy, Unknown, 03/28/17) vancomycin (Unverified Allergy, Unknown, SOB, 03/28/17) ziprasidone (Unverified Allergy, Unknown, 03/28/17) Reported Meds & Prescriptions Reported Meds & Active Scripts Active Reported Morphine ER (Morphine Sulfate) 60 Mg Tab 60 Mg PO BID Potassium Chloride ER (Potassium Chloride) 8 Meq Cap 8 Meq PO BID Clonidine (Clonidine HCl) 0.2 Mg Tab 0.2 Mg PO BID Simvastatin 20 Mg Tab 20 Mg PO HS Folic Acid 1 Mg Tablet Feosol (Ferrous Sulfate) 200 Mg Tab 325 Mg PO BIDPC Xarelto (Rivaroxaban) 15 Mg Tab 15 Mg PO BID Valium (Diazepam) 5 Mg Tab 5 Mg PO BID Review of Systems Except as stated in HPI: all other systems reviewed are Neg Physical Exam Narrative GENERAL: 31yo M not in distress. SKIN: Focused skin assessment warm/dry. HEAD: Atraumatic. Normocephalic. CARDIOVASCULAR: Regular rate and rhythm. No murmur appreciated. RESPIRATORY: No accessory muscle use. Clear to auscultation. Breath sounds equal bilaterally. GASTROINTESTINAL: Abdomen soft, non-tender, nondistended. No rebound tenderness or guarding. MUSCULOSKELETAL: No obvious deformities. No clubbing. No cyanosis. No edema. NEUROLOGICAL: Awake and alert. No obvious cranial nerve deficits. Motor grossly within normal limits. Normal speech. PSYCHIATRIC: Appropriate mood and affect; insight and judgment normal. Data Data Last Documented VS Vital Signs Date Time Temp Pulse Resp B/P (MAP) Pulse Ox O2 Delivery O2 Flow Rate FiO2 04/04/17 13:17 98.2 74 17 116/58 (77) 96 Orders Orders Urinalysis - C+S If Indicated (04/04/17 13:36) Labs Laboratory Tests Test 04/04/17 13:39 Urine Color YELLOW Urine Turbidity CLEAR Urine pH 5.5 Urine Specific [place] 1.023 Urine Protein NEG mg/dL Urine Glucose (UA) NEG mg/dL Urine Ketones NEG mg/dL Urine Occult Blood NEG Urine Nitrite NEG Urine Bilirubin NEG Urine Urobilinogen 2.0 MG/DL Urine Leukocyte Esterase NEG Urine RBC LESS THAN 1 /hpf Urine WBC LESS THAN 1 /hpf Urine Mucus FEW /lpf Microscopic Urinalysis Comment CULT NOT INDICATED MDM Medical Decision Making Medical Screen Exam Complete: Yes Emergency Medical Condition: Yes Differential Diagnosis UTI vs. malingering vs. homelessness Narrative Course 31yo well appearing male here with urinary complaints. Pt is frequently here and when I walk in was resting comfortably and watching TV. No abdominal tenderness on my exam. No focal neurologic deficits. Vital signs stable. Will check UA. UA showed no leukocyte. WBC less than 1. Return precautions given. Diagnosis Primary Impression: Homelessness Patient Instructions: General Instructions Departure Forms: Tests/Procedures Additional Instructions: Please follow up with [facility]. Return to the ED if symptoms worsen. Med/Other Pt SpecificInfo: No Change to Meds Disposition: 01 DISCHARGE HOME Condition: Stable VickiMaddison DO Apr 04, 2017 13:28
[2017-04-04 14:08] LABS: BILIRUBIN, URINE NEG (NEG); BLOOD, URINE NEG (NEG); GLUCOSE,URINE NEG (NEG); KETONE, URINE NEG (NEG); MUCUS URINE FEW /lpf (OCC); NITRITE,URINE NEG (NEG); PH, URINE 5.5 (5.0-8.5); URINE COLOR YELLOW (YELLW/STRAW); URINE LEUKOCYTE ESTERASE NEG (NEG)
== END 2017-04-04 15:09 | disposition home or self-care (01) ==
LOC: NEPE 12:52
DX: R39.9 Unspecified symptoms and signs involving the genitourinary system (principal); Z59.0 Homelessness; F31.9 Bipolar disorder, unspecified; I25.10 Atherosclerotic heart disease of native coronary artery without angina pectoris; I12.9 Hypertensive chronic kidney disease with stage 1 through stage 4 chronic kidney disease, or unspecified chronic kidney disease; N18.9 Chronic kidney disease, unspecified; D57.1 Sickle-cell disease without crisis; E07.9 Disorder of thyroid, unspecified; F17.210 Nicotine dependence, cigarettes, uncomplicated
CPT/HCPCS: 81001; 99283

== ENCOUNTER 2017-04-09 03:14 | Emergency (ER) | payer SELFPAY ==
[~2017-04-09] VITALS: Ht 182.9 cm; Wt 63.5 kg
[2017-04-09 03:17] VITALS: BP 124/66; PULSE 80; RESP 18; O2SAT 97
[2017-04-09] MEDS ORDERED: SODIUM CHLORIDE 0.9% FLUSH 10 ML FLUSH IV FLUSH PRN (03:30)
--- NOTE | 2017-04-09 03:31 | PD ---
HPI Chief Complaint: Abdominal Pain Time Seen by Provider: 03:27 Travel History International Travel<30 days: No Contact w/Intl Traveler<30days: No Traveled to known affect area: No History of Present Illness HPI 31-year-old male here for evaluation of abdominal pain. The patient reports history of pancreatitis and hepatitis. He is complaining of epigastric abdominal pain described a sharp and burning and started about 24 hours ago. No vomiting or diarrhea. No modifying factors. Reports history of cholecystectomy and biliary stent. Denies alcohol use. Admits to smoking marijuana but denies any other illicit drugs. PFSH Past Medical History Hx Anticoagulant Therapy: Yes (Xarelto) Anemia: Yes Asthma: Yes Autoimmune Disease: Yes (Leukemia) Bipolar Disorder: Yes Cardiac Catheterization: Yes Cardiovascular Problems: Yes High Cholesterol: Yes Chemotherapy: Yes Chest Pain: Yes Cirrhosis: Yes Coronary Artery Disease: Yes Diminished Hearing: No Hepatitis: Yes Hypertension: Yes Inguinal Hernia: Yes Respiratory: Yes Immunizations Current: Yes Pancreatitis: Yes Renal Failure: Yes Sickle Cell Disease: Yes Thyroid Disease: Yes Past Surgical History Abdominal Surgery: Yes (INGUINAL HERNIA) Cholecystectomy: Yes Social History Alcohol Use: No Tobacco Use: Yes (1 cig daily) Substance Use: Yes (marijuana) Allergies-Medications (Allergen,Severity, Reaction): Coded Allergies: clopidogrel (Unverified Allergy, Severe, Chest Pain, 04/09/17) erythromycin base (Unverified Allergy, Severe, 04/09/17) ketorolac (Unverified Allergy, Severe, 04/09/17) ondansetron (Unverified Allergy, Severe, Hives, 04/09/17) prochlorperazine (Unverified Allergy, Severe, 04/09/17) Sulfa (Sulfonamide Antibiotics) (Unverified Allergy, Unknown, 04/09/17) acetaminophen (Unverified Allergy, Unknown, 04/09/17) amoxicillin (Unverified Allergy, Unknown, HIVES, SOB, 04/09/17) aspirin (Unverified Allergy, Unknown, 04/09/17) citalopram (Unverified Allergy, Unknown, 04/09/17) diclofenac (Unverified Allergy, Unknown, 04/09/17) etodolac (Unverified Allergy, Unknown, 04/09/17) fluphenazine (Unverified Allergy, Unknown, 04/09/17) flurbiprofen (Unverified Allergy, Unknown, 04/09/17) haloperidol (Unverified Allergy, Unknown, 04/09/17) ibuprofen (Unverified Allergy, Unknown, 04/09/17) indomethacin (Unverified Allergy, Unknown, 04/09/17) ketoprofen (Unverified Allergy, Unknown, 04/09/17) lorazepam (Unverified Allergy, Unknown, 04/09/17) metoclopramide (Unverified Allergy, Unknown, 04/09/17) naproxen (Unverified Allergy, Unknown, 04/09/17) oxaprozin (Unverified Allergy, Unknown, 04/09/17) oxycodone (Unverified Allergy, Unknown, 04/09/17) sertraline (Unverified Allergy, Unknown, 04/09/17) tramadol (Unverified Allergy, Unknown, 04/09/17) vancomycin (Unverified Allergy, Unknown, SOB, 04/09/17) ziprasidone (Unverified Allergy, Unknown, 04/09/17) Reported Meds & Prescriptions Reported Meds & Active Scripts Active Reported Morphine ER (Morphine Sulfate) 60 Mg Tab 60 Mg PO BID Potassium Chloride ER (Potassium Chloride) 8 Meq Cap 8 Meq PO BID Clonidine (Clonidine HCl) 0.2 Mg Tab 0.2 Mg PO BID Simvastatin 20 Mg Tab 20 Mg PO HS Folic Acid 1 Mg Tablet Feosol (Ferrous Sulfate) 200 Mg Tab 325 Mg PO BIDPC Xarelto (Rivaroxaban) 15 Mg Tab 15 Mg PO BID Valium (Diazepam) 5 Mg Tab 5 Mg PO BID Review of Systems Except as stated in HPI: all other systems reviewed are Neg Physical Exam Narrative GENERAL: Well-developed, well-nourished, comfortable, no apparent distress. SKIN: Focused skin assessment warm/dry. HEAD: Atraumatic. Normocephalic. EYES: Pupils equal and round. No scleral icterus. No injection or drainage. ENT: No nasal bleeding or discharge. Mucous membranes pink and moist. NECK: Trachea midline. No JVD. CARDIOVASCULAR: Regular rate and rhythm. No murmur appreciated. RESPIRATORY: No accessory muscle use. Clear to auscultation. Breath sounds equal bilaterally. GASTROINTESTINAL: Abdomen soft, non-tender, nondistended. MUSCULOSKELETAL: No obvious deformities. No clubbing. No cyanosis. No edema. NEUROLOGICAL: Awake and alert. No obvious cranial nerve deficits. Motor grossly within normal limits. Normal speech. PSYCHIATRIC: Appropriate mood and affect; insight and judgment normal. Data Data Last Documented VS Vital Signs Date Time Temp Pulse Resp B/P (MAP) Pulse Ox O2 Delivery O2 Flow Rate FiO2 04/09/17 03:17 80 18 124/66 (85) 97 Orders Orders Complete Blood Count With Diff (04/09/17 03:29) Comprehensive Metabolic Panel (04/09/17:29) Lipase (04/09/17:29) Prothrombin Time / Inr (Pt) (04/09/17:29) Act Partial Throm Time (Ptt) (04/09/17:29) Iv Access Insert/Monitor (04/09/17:29) Ecg Monitoring (04/09/17:29) Oximetry (04/09/17:29) Sodium Chloride 0.9% Flush (Ns Flush) (04/09/17 03:30) MDM Medical Decision Making Medical Screen Exam Complete: Yes Emergency Medical Condition: Yes Differential Diagnosis Gastritis, pancreatitis, hepatobiliary disease, peptic ulcer disease Narrative Course Patient refuses to have his vital signs properly checked as well as laboratory work. He would like to leave AMA. He has a capacity to leave AMA. He was told that he could return to the emergency department at any time and should return for any concerning signs or symptoms. He will follow-up with his primary care physician today. AMA: The risks of leaving against medical advice without further evaluation treatment were discussed with the patient. These risks include cardiac dysfunction, cardiac dysrhythmia, possible heart attack, possible stroke or . The patient indicated understanding of these risks and appeared to have the capacity to make this decision. Diagnosis Primary Impression: Left against medical advice Disposition: 07 AGAINST MEDICAL ADVICE Condition: Stable Camilo Levine MD Apr 09, 2017 03:31
== END 2017-04-09 04:08 | disposition left against medical advice (07) ==
LOC: NEPE 03:14
DX: R10.13 Epigastric pain (principal); I10 Essential (primary) hypertension; E78.00 Pure hypercholesterolemia, unspecified; J45.909 Unspecified asthma, uncomplicated; I25.10 Atherosclerotic heart disease of native coronary artery without angina pectoris; K74.60 Unspecified cirrhosis of liver; K75.9 Inflammatory liver disease, unspecified; D57.1 Sickle-cell disease without crisis; N19 Unspecified kidney failure; F31.9 Bipolar disorder, unspecified; Z53.21 Procedure and treatment not carried out due to patient leaving prior to being seen by health care provider; Z72.0 Tobacco use; Z88.8 Allergy status to other drugs, medicaments and biological substances; Z79.899 Other long term (current) drug therapy
CPT/HCPCS: 99281

== ENCOUNTER 2017-04-18 12:32 | Emergency (ER) | payer SELFPAY | END 2017-04-18 12:44 | disposition left against medical advice (07) | LOC: NEDAMB 12:32 | DX: R10.9 Unspecified abdominal pain (principal) | CPT/HCPCS: 99281 ==

== ENCOUNTER 2017-04-21 19:00 | Emergency (ER) | payer SELFPAY | END 2017-04-21 20:37 | disposition left against medical advice (07) | LOC: NED 19:00 | DX: Z76.89 Persons encountering health services in other specified circumstances (principal) | CPT/HCPCS: 99281 ==

== ENCOUNTER 2017-05-14 11:20 | Emergency (ER) | payer SELFPAY ==
[~2017-05-14] VITALS: Ht 182.9 cm; Wt 75.0 kg
[2017-05-14 11:27] VITALS: BP 134/58; PULSE 79; RESP 18; TEMP 98.3; O2SAT 97
--- NOTE | 2017-05-15 17:25 | EKG ---
Date Performed: 05/14/2017 Time Performed: 11:36:49 PTAGE: 31 years EKG: Sinus rhythm VERTICAL QRS AXIS VOLTAGE CRITERIA FOR LVH EARLY REPOLARIZATION CHANGES Since the previous tracing, no significant change noted ABNORMAL ECG PREVIOUS TRACING : 04/02/2017 09.51 DOCTOR: Faustino Tavarez Interpretating Date/Time 05/17/2017 07:19:02
== END 2017-05-14 12:40 | disposition left against medical advice (07) ==
LOC: NETRI 11:20
DX: R06.02 Shortness of breath (principal); R07.89 Other chest pain; R94.31 Abnormal electrocardiogram [ECG] [EKG]; J44.9 Chronic obstructive pulmonary disease, unspecified; Z53.21 Procedure and treatment not carried out due to patient leaving prior to being seen by health care provider
CPT/HCPCS: 93005; 99281